=== PATIENT | male | born 1955 | race Caucasian/White ===

== ENCOUNTER 2016-08-13 05:06 | Inpatient (IN) | payer OTHER ==
--- NOTE | 2016-07-15 09:15 | History and Physical ---
History & Physical Date Jul 15, 2016. Chief Complaint left knee pain History of Present Illness Mr Olivares is a 60 year old male who complains of left knee pain. He presents with pain on the left side. He states that the symptoms have been chronic non- traumatic. The symptoms occur constantly with intermittent worsening. The problem is worse. Currently the patient states that the symptoms are moderate- severe. The pain is described as aching and throbbing. The symptoms occur continuously. The patient is experiencing pain in the following location: entire knee region on the left side. He rates his worst pain as 9/10. Night pain is worse. The symptoms are aggravated by daily activities, ascending stairs , descending stairs, sleeping in any position, work activities, weight bearing, walking and standing. In addition to left knee pain the patient is also experiencing decreased mobility, crepitus, joint pain, limping, night pain, nighttime awakening and stiffness. The patient has had a previous x-ray. Prior NSAIDs include Aleve, ibuprofen and Aleve PM. Pt. reports no OTC meds help the night pain at all. He has been treated with Pt. has had Cortisone and Visco in the past on the left side. Pt, had no relief from Visco and little from the Cortione. Patient has had arthroscopic surgery. 06-08-15 Dr. Wagoner performed Arthroscopy, left knee Partial medial meniscectomy, Partial lateral meniscectomy. Pt. had Right TKA by Dr. Wagoner in 2009. Past Medical/Surgical History right knee replacement 2009 right knee manipulation under anesthesia May 2010 left knee arthroscopy Current Medications: Lipitor 1 tab po daily Additional History Hepatic Disease: No Endocrine Disorder: No Kidney Disease: No Hypertension: No Heart Disease: No Other: High Cholesterol Allergies Coded Allergies: No Known Allergies (Unverified , 07/15/16) Physical Examination Skin: warm/dry, no rash Eyes: normal inspection, EOMI, sclerae normal ENT: normal ENT inspection, pharynx normal Head: normocephalic, atraumatic Neck: supple, no adenopathy, trachea midline Respiratory/Chest: lungs clear, normal breath sounds, no respiratory distress Cardiovascular: regular rate, rhythm, no edema, no murmur Abdomen / GI: normal bowel sounds, non tender Addiitonal Comments: Strength LE * Strength Description - Knee: Left: strength is decreased. Knee ROM L * Active ROM - Flexion: 135 degrees, Extension: 0 degrees, Factors: pain, Description: active painful range of motion. Passive ROM - Flexion: 135 degrees, Extension: 0 degrees, Factors: pain, Description: passive painful range of motion. Knee ROM R * Active ROM - Flexion: 135 degrees, Extension: 0 degrees, Factors: normal, Description: active pain free range of motion. Passive ROM - Flexion: 135 degrees, Extension: 0 degrees, Factors: normal, Description: passive pain free range of motion. Strength LE Normal Strength Description - Normal lower extremity: Bilateral. Hip : Left: strength is normal. Ankle/Foot: Left: strength is normal. Knee * Inspection - Gait: limp. Alignment - Right: neutral, Left: varus. Ecchymosis - Right: negative, Left: negative. Effusion - Right: normal, Left: mild. Swelling - Right: normal, Left: mild. Flexibility - Right: normal, Left: normal. Maximum tenderness - Right: normal, Left: medial joint line, lateral joint line, patella. Patella exam - Crepitation - Right: normal, Left: mild. Patella position - Right: neutral, Left: neutral. Tilt - Right: normal, Left: equal. Cece's - lateral - Left: Positive. [facility]'s - medial - Left: Positive. Knee Comments No calf tenderness Knee Normal Inspection - Atrophy - Right: Absent, Left: Absent. Skin - Right: Normal, Left: Normal. Patella exam - Apprehension - Right: Negative, Left: Negative. Q-angle - Right: Normal, Left: Normal. Marcelo's - Right: Negative, Left: Negative. Cece's - lateral - Right: Negative. [facility]'s - medial - Right: Negative. Posterior drawer - Right: Negative, Left: Negative. Anterior drawer - Right: Negative, Left: Negative. Valgus stress - Right: Negative, Left : Negative. Varus stress - Right: Negative, Left: Negative. Neurovascular LE Normal Neurovascular examination including reflexes, sensation , and pulses is within normal limits. Diagnosis Left knee DJD High Cholesterol Plan of Treatment Xrays reviewed of the left knee showing findings consistent with degenerative joint disease including joint space narrowing, subchondral sclerosis and peripheral osteophyte formation. no acute bony pathology, overall varus alignment. Impression: degenerative joint disease of the left knee with no acute bony pathology noted. PLAN: Further care discussed with patient and at this point in time has failed conservative measures and would like to proceed with a left total knee replacement. Plan on discharge will be home with outpatient physical therapy. DVT prophalaxis with TEDs, SCDs and will also place on aspirin 81 mg p.o. b.i.d. for a month postop. Patient will have follow up appointment in our office two weeks post op for staple/suture removal and re-evaluation. Patient otherwise has no other questions or concerns.
[2016-07-15 11:28] VITALS: BMI 29.0
--- NOTE | 2016-07-15 12:04 | PAT Medication Instructions ---
Service Date Jul 15, 2016. Current Home Medication List Hcnkobamxga-Mznslsglomh-Lrn C- (Glucosamine Chondroitin), 2 TAB PEG QAM Ibuprofen (Advil), 400 MG PO QAM Naproxen Sodium-Diphenhydramin (Aleve Pm 220-25 mg), 2 TAB PO HS [Lipitor], 1 TAB PO QAM Medication Instructions For Your Scheduled Surgery - Check with surgeon for instructions: Ibuprofen (Advil), 400 MG PO QAM Naproxen Sodium-Diphenhydramin (Aleve Pm 220-25 mg), 2 TAB PO HS - Hold the following medications 2 weeks prior to surgery: Aqeagfxdamw-Ihkvctrrxbc-Beq C- (Glucosamine Chondroitin), 2 TAB PEG QAM - Take the following medications the morning of surgery with a sip of water: [Lipitor], 1 TAB PO QAM If you have any questions please call us at [phone] (Katie Diehl PA-C) or [phone] or [phone]
[2016-07-15 12:55] LABS: BASO % 0.2 %; BASO ABS # 0.01 K/uL (0-0.2); COMPLETE YES; EOS % 0.8 %; HEMATOCRIT 45.7 % (42-52); IG% 0.2 %; LYMPH % 25.8 %; LYMPH ABS # 1.33 K/uL (1.2-3.4); MEAN CELL VOLUME 87.9 fL (80-100); MEAN CORPUSCULAR HEMOGLOBIN 30.2 pg (25-34); MEAN CORPUSCULAR HGB CONC 34.4 g/dl (32-36); MEAN PLATELET VOLUME 10.8 fL (7.4-10.4); MONO % 11.7 %; NEUT % 61.3 %; PLATELET COUNT 164 K/uL (130-400); WHITE BLOOD COUNT 5.15 K/uL (4.8-10.8)
[2016-07-15 13:02] LABS: URINE APPEARANCE CLEAR (CLEAR); URINE BILIRUBIN NEG (NEG); URINE COLOR YELLOW; URINE NITRITE NEG (NEG); URINE SPECIFIC GRAVITY 1.017 (1.000-1.030); UROBILINOGEN NEG (NEG)
[2016-07-15 13:11] LABS: PROTHROMBIN TIME (PATIENT) 10.6 SECONDS (9.0-12.0)
[2016-07-15 13:14] LABS: MANUAL MICROSCOPIC REQUIRED? NO; REVIEW REQ? NO
[2016-07-15 13:54] LABS: BUN/CREATININE RATIO 16.5 (10-20); CALCIUM 8.9 mg/dl (8.5-10.1); POTASSIUM 4.3 mmol/L (3.5-5.1)
--- NOTE | 2016-08-12 12:42 | HISTORY & PHYSICAL EXAMINATION ---
DATE OF ADMISSION: 08/13/2016 HISTORY OF PRESENT ILLNESS: The patient presents as a 61-year-old white male with left knee pain. He has had a longstanding history of left knee DJD, he has had a previous arthroscopy in June of 2015 with partial meniscectomies and had grade 4 global changes involving his left knee joint. He has previously undergone a right total knee arthroplasty in 2009 successfully, presents with progressive complaints of pain and disability about his left knee. He has failed attempts at conservative management including viscosupplementations, corticosteroid injections, relative rest, activity modification, continued complaints of pain despite the above and presents today for total joint arthroplasty. PAST MEDICAL HISTORY: No history of hypertension. No history of hypercholesterolemia. No history of endocrine disorders. FAMILY HISTORY: Unremarkable and noncontributory. SOCIAL HISTORY: The patient denies history of smoking, alcohol consumption or recreational drug use. PAST SURGICAL HISTORY: Significant for left knee arthroscopy. ALLERGIES: TAMIFLU. MEDICATIONS: Include Lipitor 20 mg p.o. daily. PMH Otherwise unremarkable. See history of present illness for pertinent positives. PHYSICAL EXAMINATION: GENERAL: Reveals a very pleasant 61-year-old white male with complaints of ongoing pain attributable to his left knee and presents for left total knee arthroplasty, postoperative pain management, DVT prophylaxis. HEENT: Otherwise unremarkable, atraumatic, normocephalic. HEART: Regular at 72 beats per minute. No murmurs are noted. LUNGS: Clear. No rales, rhonchi, or wheezes noted. ABDOMEN: Soft, nontender, nondistended. Bowel sounds are present in all 4 quadrants. RECTAL: No rectal examination was performed. MUSCULOSKELETAL: Consistent with of left knee DJD, failing attempts at conservative management. PLAN: Total knee arthroplasty, postoperative pain management, DVT prophylaxis, antibiotics as necessary. MTDD
[2016-08-13] VITALS (9 sets, daily range): BP systolic 112–161; BP diastolic 66–90; PULSE 54–73; TEMP 36.5–36.9; O2SAT 97–99; Ht 182.9 cm; Wt 96.2 kg
[~2016-08-13] VITALS: Ht 182.9 cm; Wt 96.2 kg
[~2016-08-13 05:06] MED LIST: GLUCTAB7 PO; IBUP-1050 PO; LIPITOR PO; NAPR-998 PO
[2016-08-13] MEDS ORDERED: ROPIVACAINE 5MG/ML 30 ML 150 MG, BUPIVACAINE/EPINEPHR 0.5% MPF 30 ML, KETOROLAC TROMETH... INFIL SCH ×7 (06:00)
[2016-08-13] MEDS ORDERED: CEFAZOLIN 2000 MG/60 ML D5W 60 ML IV SCH (06:00)
[2016-08-13] MEDS ORDERED: LACTATED RINGER'S 1000ML IV SCH ×2 (06:00)
[2016-08-13] MEDS ORDERED: LACTATED RINGER'S 500 ML IV SCH (06:00)
[2016-08-13] MEDS ORDERED: SCOPOLAMINE 1.5 MG TDSY TD SCH (06:00)
[2016-08-13] MEDS ORDERED: BUPIVACAINE 0.5 % 5 MG/1 ML PF 10ML VIAL ONE (06:22)
[2016-08-13] MEDS ORDERED: POVIDONE-IODINE OP SOLN 30 ML BTL ONE (06:40)
[2016-08-13] MEDS ORDERED: BACITRACIN 50000 UNIT VIAL ONE (06:40)
[2016-08-13] MEDS ORDERED: ORTHO JOINT ANESTHETIC ONE (06:40)
[2016-08-13] MEDS ORDERED: MIDAZOLAM HCL 1 MG/ML 2ML VIAL ONE (06:40)
[2016-08-13] MEDS ORDERED: ONDANSETRON INJ 2 MG/ML 2 ML VIAL IV PRN (06:45)
[2016-08-13] MEDS ORDERED: ATROPINE SULFATE 0.1 MG/ML 5ML SYR IV PRN (06:45)
[2016-08-13] MEDS ORDERED: EpHEDrine SULFATE INJ 50 MG/ML AMP IV PRN (06:45)
[2016-08-13] MEDS ORDERED: FENTANYL CITRATE INJ 50 MCG/1 ML 2 ML VIAL IV PRN (06:45)
--- NOTE | 2016-08-13 07:00 | History & Physical Bridge Note ---
H&P Re-Evaluation Bridge Note: I have examined the patient, reviewed the History & Physical and in the interval since the performance of the History & Physical I have noted the following changes of clinical significance: No changes noted
[2016-08-13] MEDS: TRANEXAMIC ACID INJ 1,000 MG in SODIUM CHLORIDE 0.9% 100ML 100 ML IV SCH ×2 (07:03→11:16)
[2016-08-13] MEDS ORDERED: PROPOFOL IV EMULSION 10 MG/ML 20 ML VIAL IV ONE (07:22)
--- NOTE | 2016-08-13 08:26 | [facility] Post Operative Brief Note ---
Immediate Operative Summary Operative Date August 13, 2016. Pre-Operative Diagnosis Left Knee Degenerative Joint Disease Post-Operative Diagnosis Left Knee Degenerative Joint Disease Procedure(s) Performed Left Total Knee Arthroplasty Surgeon Dr. Kirill Wagoner Protection Analyst Surgeon(s) Sunil Sorenson PA-C Estimated Blood Loss 5mL Findings severe djd lt knee Specimens Specimen A. Left knee bone and tissue Complication(s) None Disposition Recovery Room / PACU
--- NOTE | 2016-08-13 08:48 | OPERATIVE REPORT ---
DATE OF OPERATION: 08/13/2016 PREOPERATIVE DIAGNOSIS: Severe end-stage degenerative joint disease, left knee. POSTOPERATIVE DIAGNOSIS: Severe end-stage degenerative joint disease, left knee. PROCEDURE: Left total knee arthroplasty utilizing Ocampo \T\ Nephew Journey II nonblock total knee arthroplasty size 8 femur, 7 tibia, 10 poly, 35 oval patella. SURGEON: Dr. Wagoner. GUIDE CHANGER: Sunil Sorenson PA-C, who was necessary for prepping, draping, retraction, wound closure of deep fascia, subQ and skin and was necessary for the case. ESTIMATED BLOOD LOSS: 5 mL. TOURNIQUET TIME: 45 minutes. COMPLICATIONS: None. HISTORY OF PRESENT ILLNESS: The patient is a 61-year-old white male who presents with complaints of ongoing pain attributed to his left knee. He has been nonresponsive to conservative therapy including injections, viscous supplementations, corticosteroid injections, relative rest, activity modification and presents for total knee arthroplasty. He has previously undergone successful right total knee arthroplasty in 2010, he presents today for a left total knee arthroplasty. OPERATION AND FINDINGS: PROCEDURE: The patient was properly prepped and draped in supine position for total knee arthroplasty after identifying the appropriate surgical site. An anterior midline incision was made through the subcutaneous tissues down to the region of the extensor mechanism. A medial parapatellar incision was subsequently made. Meticulous hemostasis was obtained and performed at all times. The patella having been subluxed lateralward, medial and lateral meniscal remnants were excised. The patellar cut was then initially made and was sized to the appropriate size. After subluxing the tibia forward the appropriate meniscal fragments having been removed the distal femur was then cut first utilizing a Ocampo \T\ Nephew block. The distal femoral cuts and chamfer cuts were all made under direct visualization and the proximal tibial osteotomy cut was also made utilizing Ocampo \T\ Nephew blocks and checked with an extramedullary guide. The appropriate trial components on the femur and tibia were placed. Appropriate trial spacers were used to check flexion and extension gaps. With flexion and extension gaps being equal, the components were then subsequently after thorough irrigation and debridement lavage components were then subsequently cemented in the following order: femur, tibia and patella. Exparel was used for intraoperative anesthesia, the medial parapatellar incision was closed utilizing #1 Vicryl, subQ was closed with 2-0 Vicryl, skin was closed with skin clips. A sterile compression dressing was placed. The patient was taken to recovery room in stable condition. Due to the complex nature of the procedure, the entire surgery was performed with the operational assistance of Sunil Sorenson PA-C. The program support assistant, under direct supervision, was involved in the actual performance of all aspects of the surgical procedure including hemostasis, tissue retraction and incision, instrument management, patient positioning, and wound closure. I attest to the content of the Intraoperative Record and any orders documented therein. Any exceptio ns are noted below.
[2016-08-13] MEDS ORDERED: BISACODYL 10 MG SUPP PR PRN (09:15)
[2016-08-13] MEDS ORDERED: MAGNESIUM HYDROXIDE SUSP 30 ML UDC PO PRN (09:15)
[2016-08-13] MEDS ORDERED: ALUMINUM/MAGNESIUM/SIMETH (MAALOX MAX) 30 ML UDC PO PRN (09:15)
[2016-08-13] MEDS ORDERED: MoRPHine SULFATE 2 MG/ML CARP IV PRN ×2 (09:15→11:45)
[2016-08-13] MEDS ORDERED: ZOLPIDEM TARTRATE 5 MG TAB PO PRN (09:15)
[2016-08-13] MEDS ORDERED: SOD PHOSPHATE/SOD BIPHOSPHATE ENEMA 132 ML BTL PR PRN (09:15)
--- NOTE | 2016-08-13 09:35 | DIAGNOSTIC IMAGING REPORT ---
LEFT KNEE 1 OR 2 VIEWS ROUTINE CLINICAL HISTORY: Postoperative evaluation. COMPARISON: None FINDINGS: Alignment of the total left knee arthroplasty is anatomic. There is no periprosthetic fracture. There are a few indeterminate punctate densities which project inferior to the patella on lateral projection. Drains are in place. IMPRESSION: 1. Status post total left knee arthroplasty. No periprosthetic fracture. 2. A few indeterminate punctate radiodensities which project inferior to the patella on lateral projection. Electronically signed by: Sony Lao M.D. 08/13/2016 9:34 AM Dictated Date/Time: 08/13/2016 9:33 AM
--- NOTE | 2016-08-13 10:59 | Anesthesiology Progress Note ---
Anesthesia Post Op Note Date & Time August 13, 2016 at 10:58 Vital Signs Pain Intensity: 0 Vital Signs Past 12 Hours Date Time Temp Pulse Resp B/P Pulse Ox O2 Delivery O2 Flow Rate FiO2 08/13/16 10:15 62 16 110/60 97 Nasal Cannula 2 08/13/16 10:00 36.5 60 16 120/65 97 Nasal Cannula 2 08/13/16 09:50 65 16 115/60 98 Nasal Cannula 2 08/13/16 09:40 61 18 113/62 98 Nasal Cannula 2 08/13/16 09:30 59 13 110/60 96 Nasal Cannula 2 08/13/16 09:20 67 16 109/61 97 Nasal Cannula 2 08/13/16 09:10 36.5 76 16 114/60 98 Nasal Cannula 2 08/13/16 05:42 36.5 62 20 161/90 97 Room Air Notes Mental Status: alert / awake / arousable, participated in evaluation Pt Amnestic to Procedure: Yes Nausea / Vomiting: adequately controlled Pain: adequately controlled Airway Patency, RR, SpO2: stable & adequate BP & HR: stable & adequate Hydration State: stable & adequate Neuraxial Anesthesia: was administered, sensory block is resolving Anesthetic Complications: no major complications apparent
[2016-08-13] MEDS ORDERED: MoRPHine SULFATE 4 MG/ML 1 ML CARP\\VIAL IV PRN (11:45)
[2016-08-13] MEDS ORDERED: MoRPHine SULFATE 10 MG/ML CARP/VIAL IV PRN (11:45)
[2016-08-13] MEDS: D5W AND 1/2NSS + 20MEQ KCL 1,000 ML IV SCH ×2 (12:08→21:21)
[2016-08-13] MEDS: KETOROLAC TROMETHAMINE 30 MG/ML VIAL IV. SCH ×2 (12:09→17:45)
[2016-08-13] MEDS: CEFAZOLIN IV 2,000 MG in DEXTROSE 5% 50ML 50 ML IV SCH ×2 (13:36→21:26)
[2016-08-13] MEDS: ACETAMINOPHEN 500 MG TAB PO SCH ×2 (13:37→21:26)
[2016-08-13] MEDS ORDERED: NURSING VERBAL MED ORDER ONE (17:15)
[2016-08-13] MEDS: OXYCODONE HCL 10 MG TABCR (OXYCONTIN) PO SCH (21:00)
[2016-08-13] MEDS: SENNA 8.6 MG TAB PO SCH (21:20)
[2016-08-13] MEDS: DOCUSATE SODIUM 100 MG CAP PO SCH (21:20)
[2016-08-13] MEDS: ASPIRIN 81 MG ECTAB PO SCH (21:21)
[2016-08-14] VITALS (7 sets, daily range): BP systolic 107–153; BP diastolic 64–76; PULSE 55–80; TEMP 36.6–37.1; O2SAT 92–98
[2016-08-14] MEDS: KETOROLAC TROMETHAMINE 30 MG/ML VIAL IV. SCH ×2 (00:39→05:23)
[2016-08-14] MEDS: ATORVASTATIN 20 MG TAB PO SCH (05:23)
[2016-08-14] MEDS: ACETAMINOPHEN 500 MG TAB PO SCH ×3 (05:23→21:57)
[2016-08-14 07:02] LABS: HEMATOCRIT 36.1 % (42-52); MEAN CELL VOLUME 89.8 fL (80-100); MEAN CORPUSCULAR HEMOGLOBIN 28.6 pg (25-34); MEAN CORPUSCULAR HGB CONC 31.9 g/dl (32-36); MEAN PLATELET VOLUME 10.6 fL (7.4-10.4); PLATELET COUNT 143 K/uL (130-400); RED BLOOD COUNT 4.02 M/uL (4.7-6.1); WHITE BLOOD COUNT 10.56 K/uL (4.8-10.8)
--- NOTE | 2016-08-14 07:05 | Orthopedic Progress Note ---
Orthopedic Progress Note Date of Service August 14, 2016. Subjective Post OP Day: 1 Reports: feeling well, pain controlled w PO medications, Denies: SOB, calf pain , chest pain, complaints, light headedness, nausea / vomiting Objective calves soft nontender, N/V intact, capillary refill less than 2 sec., dressing C /D/I, A&O x3, toes mobile, hemovac drainage (225cc/8 hours) Date Time Temp Pulse Resp B/P Pulse Ox O2 Delivery O2 Flow Rate FiO2 08/14/16 03:20 36.6 61 18 107/64 98 Room Air 08/14/16 00:43 Room Air 08/13/16 23:04 36.7 65 16 136/69 97 Room Air 08/13/16 19:28 36.7 54 16 122/69 98 Nasal Cannula 2.0 08/13/16 16:30 Nasal Cannula 2.0 08/13/16 15:06 36.8 61 17 150/68 99 Nasal Cannula 2.0 08/13/16 13:29 36.9 71 17 118/73 98 Nasal Cannula 2.0 08/13/16 12:26 73 17 122/72 97 Nasal Cannula 2.0 08/13/16 11:28 36.6 56 17 118/72 99 2.0 08/13/16 11:01 36.5 56 16 112/66 97 Nasal Cannula 2.0 08/13/16 10:30 36.6 62 16 123/71 97 Nasal Cannula 2.0 08/13/16 10:30 97 Nasal Cannula 2.0 08/13/16 10:30 97 Nasal Cannula 2.0 08/13/16 10:15 62 16 110/60 97 Nasal Cannula 2 08/13/16 10:00 36.5 60 16 120/65 97 Nasal Cannula 2 08/13/16 09:50 65 16 115/60 98 Nasal Cannula 2 08/13/16 09:40 61 18 113/62 98 Nasal Cannula 2 08/13/16 09:30 59 13 110/60 96 Nasal Cannula 2 08/13/16 09:20 67 16 109/61 97 Nasal Cannula 2 08/13/16 09:10 36.5 76 16 114/60 98 Nasal Cannula 2 Laboratory Results 24 Hours: Test 08/14/16 06:35 Hematocrit 36.1 % Hemoglobin 11.5 g/dL Assessment & Plan Assessment: POD #1 s/p Left TKA -pt/ot -dvt proph with monse/scds/asa -plan for d/c home with out-patient PT, will recheck after PT for drain output High Cholesterol Discharge Planning Discharge Planning: home with oppt DVT Prophylaxis: TEDs, SCDs, ASA
--- NOTE | 2016-08-14 07:09 | Discharge Instructions ---
Discharge Instructions Date of Service August 14, 2016. Admission Reason for Admission: Left Knee Osteoarthritis Discharge Discharge Diagnosis / Problem: left total knee replacement Discharge Goals Goal(s): Decrease discomfort, Improve function, Increase independence Activity Recommendations Activity Limitations: as noted below Weightbearing Status: Left weightbearing (as tolerated) . Instructions / Follow-Up Instructions / Follow-Up ACTIVITY RECOMMENDATIONS: SELF CARE INSTRUCTIONS AFTER TOTAL KNEE REPLACEMENT A. You may need to continue a physical therapy program after discharge from the hospital. There are several options available to you. Your doctor will assist you in selecting the best one for you. 1. An out-patient facility 2 to 3 times a week for therapy or home therapy. 2. Continue working on all exercises taught to you in the hospital. Your goals should be to increase bending of your knee to 90 degrees and beyond and to fully straighten your knee. B. You may progress at your own pace from walking with a walker or crutches to a cane; then to no assistive devices. C. Make walking a part of your daily routine. Be up as much as comfortable with rest periods throughout the day. Rest with leg elevation is very important. Use the ice wrap frequently for the first 3-4 weeks. D. There are no restrictions on activities. You may ride in a car, shop, participate in interventional nurse and all social activities. E. Wear the long elastic stockings (SARIKA hose) 20 hours a day for 2 weeks after surgery. They can be removed several times a day for laundering and for a bath. F. You may shower, no tub baths until cleared by your doctor. SPECIAL CARE INSTRUCTIONS: VERY IMPORTANT TO READ AND REVIEW A. There are a few signs you need to watch for after you are home. Call [facility] if you notice any of the followin. Increased severe knee pain. Some pain is expected especially when you exercise. 2. Increased swelling in your leg or knee; pain or swelling of the calf muscle in either lower leg. 3. Any fluid drainage from the incision. 4. Shortness of breath or chest pain. B. Please call [facility] at if you have any concerns or questions about your operation or recovery. The doctor or his nurse will return your call promptly. C. You must take antibiotics before dental work, bladder, bowel or other surgery. Your doctor will provide you with a permanent care to carry describing this precaution. IMPORTANT: * REMEMBER TO TAKE ASPIRIN, 81 MG, TWICE DAILY FOR 4 WEEKS UNLESS OTHERWISE DIRECTED. THIS IS YOUR BLOOD THINNER. * HIGH RISK PATIENTS MAY BE PRESCRIBED A STRONGER BLOOD THINNER. THIS WILL BE PROVIDED AT DISCHARGE. * CALL IF INCREASED PAIN, REDNESS, DRAINAGE OR FEVER GREATER THAT 101. * WEAR SARIKA HOSE 20 HOURS PER DAY FOR 2 WEEKS. * DERMABOND Prineo- This is a mesh tape dressing that is covered with glue. It should remain in place until the incision is properly healed, usually 10-14 days. This dressing is designed to naturally slough off. You may trim the excess mesh tape as it peels off. Incision may be briefly wet in a shower. Dry immediately by blotting with a clean, dry towel. Do not bath or swim until instructed by your doctor. Do not scratch, rub, or pick at the dressing. Do not apply any topical ointments or lotions until dressing is completely removed and/or instructed by your doctor. There may be a small piece of suture material at one end of your incision. Do not pull or trim this. If it is bothersome or catching on clothing, you may cover it with a band-aid. FOLLOW UP VISIT: If appointment is not already scheduled: Please call [facility] to make a follow-up appointment for 2 weeks after your surgery at . Current Hospital Diet Patient's current hospital diet: Regular Diet Discharge Diet Recommended Diet: Regular Diet Procedures Procedures Performed: Left Total Knee Arthroplasty Pending Studies Studies pending at discharge: no Medical Emergencies . Who to Call and When: Medical Emergencies: If at any time you feel your situation is an emergency, please call 911 immediately. . Non-Emergent Contact Non-Emergency issues call your: Primary Care Provider, Surgeon . "Provider Documentation" section prepared by Sunil Sorenson. . VTE Core Measure Inpt VTE Proph given/why not?: Other Anticoagulation (ASA 81mg po bid x 1 month ), Benjie Clark SCD's [place] Drug Monitoring Program Search Results: patient reviewed within database, no issues identified
[2016-08-14] MEDS ORDERED: RXC5 PO (07:16)
[2016-08-14] MEDS ORDERED: OXYSR10 PO (07:16)
[2016-08-14] MEDS ORDERED: ACET-1138 PO (07:16)
[2016-08-14] MEDS ORDERED: ONDA8TAB12 PO (07:16)
[2016-08-14] MEDS ORDERED: ASPEC81 PO (07:16)
[2016-08-14] MEDS ORDERED: CLB200 PO (07:16)
[2016-08-14] MEDS: D5W AND 1/2NSS + 20MEQ KCL 1,000 ML IV SCH (07:28)
[2016-08-14 07:32] LABS: PROTHROMBIN TIME (PATIENT) 10.7 SECONDS (9.0-12.0)
[2016-08-14 07:37] LABS: BUN/CREATININE RATIO 17.1 (10-20); CALCIUM 8.2 mg/dl (8.5-10.1); CREATININE 0.97 mg/dl (0.60-1.40); POTASSIUM 4.3 mmol/L (3.5-5.1)
--- NOTE | 2016-08-14 08:18 | Anesthesiology Progress Note ---
Anesthesia Post Op Note Date & Time August 14, 2016 at 08:19 Vital Signs Pain Intensity: 2.0 Vital Signs Past 12 Hours Date Time Temp Pulse Resp B/P Pulse Ox O2 Delivery O2 Flow Rate FiO2 08/14/16 08:11 36.7 61 18 122/71 97 Room Air 08/14/16 03:20 36.6 61 18 107/64 98 Room Air 08/14/16 00:43 Room Air 08/13/16 23:04 36.7 65 16 136/69 97 Room Air Notes Mental Status: alert / awake / arousable, participated in evaluation Pt Amnestic to Procedure: Yes Nausea / Vomiting: adequately controlled Pain: adequately controlled Airway Patency, RR, SpO2: stable & adequate BP & HR: stable & adequate Hydration State: stable & adequate Neuraxial Anesthesia: sensory block resolved Anesthetic Complications: no major complications apparent
[2016-08-14] MEDS: OXYCODONE HCL 10 MG TABCR (OXYCONTIN) PO SCH ×2 (08:46→20:59)
[2016-08-14] MEDS: PANTOprazole SOD 40 MG TAB PO SCH (08:47)
[2016-08-14] MEDS: DOCUSATE SODIUM 100 MG CAP PO SCH ×2 (08:47→20:58)
[2016-08-14] MEDS: ASPIRIN 81 MG ECTAB PO SCH ×2 (08:47→20:57)
[2016-08-14] MEDS: MULTIVITAMIN TAB PO SCH (08:47)
[2016-08-14] MEDS ORDERED: LIPITOR PO SCH (09:00)
[2016-08-14] MEDS ORDERED: KETOROLAC TROMETHAMINE 30 MG/ML VIAL IV STA (17:25)
[2016-08-14] MEDS: CeleBREX 200 MG CAP PO SCH (20:58)
[2016-08-14] MEDS: SENNA 8.6 MG TAB PO SCH (20:59)
[2016-08-15] MEDS: ONDANSETRON INJ 2 MG/ML 2 ML VIAL IV PRN ×2 (03:27→09:13)
[2016-08-15] MEDS: OXYCODONE HCL IR 5 MG TAB (IMMEDIATE RELEASE) PO PRN ×2 (03:32→07:37)
[2016-08-15] MEDS: ACETAMINOPHEN 500 MG TAB PO SCH ×2 (05:53→13:33)
[2016-08-15] MEDS: ATORVASTATIN 20 MG TAB PO SCH (05:53)
[2016-08-15 06:52] VITALS: BP 147/79; PULSE 70; TEMP 36.5; O2SAT 98
--- NOTE | 2016-08-15 07:00 | Orthopedic Progress Note ---
Orthopedic Progress Note Date of Service August 15, 2016. Subjective Post OP Day: 2 (s/p Left TKA) Reports: feeling well, pain controlled w PO medications, Denies: SOB, calf pain , chest pain, complaints, light headedness, nausea / vomiting Additional Notes: calf pain from last evening has resolved Objective calves soft nontender, N/V intact, capillary refill less than 2 sec., incision C /D/I, A&O x3, toes mobile Date Time Temp Pulse Resp B/P Pulse Ox O2 Delivery O2 Flow Rate FiO2 08/15/16 06:52 36.5 70 18 147/79 98 Room Air 08/15/16 00:25 Room Air 08/14/16 23:13 37.1 69 16 147/69 97 Room Air 08/14/16 20:13 36.8 72 16 126/70 96 Room Air 08/14/16 18:13 74 143/75 08/14/16 15:57 36.8 80 18 153/76 92 Room Air 08/14/16 15:45 Room Air 08/14/16 12:06 36.7 55 18 112/67 98 Room Air 08/14/16 08:11 36.7 61 18 122/71 97 Room Air 08/14/16 07:40 Room Air Assessment & Plan Assessment: POD #2 s/p Left TKA -pt/ot -dvt proph with monse/scds/asa -plan for d/c home with out-patient PT, likely after PT today High Cholesterol Discharge Planning Discharge Planning: home with oppt DVT Prophylaxis: TEDs, SCDs, ASA
--- NOTE | 2016-08-15 07:04 | Discharge Summary ---
Orthopedic Discharge Summary Admission Date/Reason August 13, 2016 at 07:00 Left Knee Osteoarthritis. Discharge Date/Disposition August 15, 2016 Home with services Diagnosis Principal Diagnosis: left knee osteoarthritis Procedure(s) Performed Left total knee arthroplasty utilizing Ocampo \T\ Nephew Journey II nonblock total knee arthroplasty size 8 femur, 7 tibia, 10 poly, 35 oval patella. Consultations none Medication Reconciliation New Medications: Ondansetron Hcl (Zofran) 8 Mg Tab 8 MG PO Q8 for Nausea, #20 TAB Acetaminophen (Tylenol Extra Strength) 500 Mg Tab 1000 MG PO Q8H, #126 TAB Aspirin (Aspirin EC Low Dose) 81 Mg Ectab 81 MG PO BID for 30 Days, #60 Celecoxib (Celebrex) 200 Mg Cap 200 MG PO BID, #60 CAP Oxycodone HCl (Oxycontin) 10 Mg Tabcr 10 MG PO Q12, #20 Oxycodone HCl (Oxycodone HCl) 5 Mg Tab 5-10 MG PO Q4H PRN for Pain, #90 TAB Continued Medications: [Lipitor] () 1 TAB PO QAM Discontinued Medications: Qpjzpejpoan-Kegwffpnhwv-Ubk C- (Glucosamine Chondroitin) 1 Tab Tab 2 TAB PO QAM Ibuprofen (Advil) 200 Mg Tab 400 MG PO QAM, TAB Naproxen Sodium-Diphenhydramin (Aleve Pm 220-25 mg) 1 Tab Tab 2 TAB PO HS Admission Physical Exam As per Admitting History & Physical. Hospital Course Patient was a same day admission after undergoing a successful left TKA. he tolerated the procedure well. Post-operatively, his activity was progressed and well tolerated. Please refer to daily progress notes and PT notes for complete details. After exam on 08/15/16, patient felt to be stable for discharge home with OPPT. Patient will f/u in the office in 2 weeks for further evaluation including x-rays and incision check, sooner if having any issues or concerns. Below are pertinent labs/studies during their hospital stay: Last Vital Signs Documentation Date Time Temp Pulse Resp B/P Pulse Ox O2 Delivery O2 Flow Rate FiO2 08/15/16 06:52 36.5 70 18 147/79 98 Room Air 08/13/16 19:28 2.0 Last Resulted CBC 08/14/16 06:35 Last Resulted BMP 08/14/16 06:35 Discharge Instructions ACTIVITY RECOMMENDATIONS: SELF CARE INSTRUCTIONS AFTER TOTAL KNEE REPLACEMENT A. You may need to continue a physical therapy program after discharge from the hospital. There are several options available to you. Your doctor will assist you in selecting the best one for you. 1. An out-patient facility 2 to 3 times a week for therapy or home therapy. 2. Continue working on all exercises taught to you in the hospital. Your goals should be to increase bending of your knee to 90 degrees and beyond and to fully straighten your knee. B. You may progress at your own pace from walking with a walker or crutches to a cane; then to no assistive devices. C. Make walking a part of your daily routine. Be up as much as comfortable with rest periods throughout the day. Rest with leg elevation is very important. Use the ice wrap frequently for the first 3-4 weeks. D. There are no restrictions on activities. You may ride in a car, shop, participate in it network architect and all social activities. E. Wear the long elastic stockings (SARIKA hose) 20 hours a day for 2 weeks after surgery. They can be removed several times a day for laundering and for a bath. F. You may shower, no tub baths until cleared by your doctor. SPECIAL CARE INSTRUCTIONS: VERY IMPORTANT TO READ AND REVIEW A. There are a few signs you need to watch for after you are home. Call [facility] if you notice any of the followin. Increased severe knee pain. Some pain is expected especially when you exercise. 2. Increased swelling in your leg or knee; pain or swelling of the calf muscle in either lower leg. 3. Any fluid drainage from the incision. 4. Shortness of breath or chest pain. B. Please call [facility] at if you have any concerns or questions about your operation or recovery. The doctor or his nurse will return your call promptly. C. You must take antibiotics before dental work, bladder, bowel or other surgery. Your doctor will provide you with a permanent care to carry describing this precaution. IMPORTANT: * REMEMBER TO TAKE ASPIRIN, 81 MG, TWICE DAILY FOR 4 WEEKS UNLESS OTHERWISE DIRECTED. THIS IS YOUR BLOOD THINNER. * HIGH RISK PATIENTS MAY BE PRESCRIBED A STRONGER BLOOD THINNER. THIS WILL BE PROVIDED AT DISCHARGE. * CALL IF INCREASED PAIN, REDNESS, DRAINAGE OR FEVER GREATER THAT 101. * WEAR SARIKA HOSE 20 HOURS PER DAY FOR 2 WEEKS. * DERMABOND Prineo- This is a mesh tape dressing that is covered with glue. It should remain in place until the incision is properly healed, usually 10-14 days. This dressing is designed to naturally slough off. You may trim the excess mesh tape as it peels off. Incision may be briefly wet in a shower. Dry immediately by blotting with a clean, dry towel. Do not bath or swim until instructed by your doctor. Do not scratch, rub, or pick at the dressing. Do not apply any topical ointments or lotions until dressing is completely removed and/or instructed by your doctor. There may be a small piece of suture material at one end of your incision. Do not pull or trim this. If it is bothersome or catching on clothing, you may cover it with a band-aid. FOLLOW UP VISIT: If appointment is not already scheduled: Please call [facility] to make a follow-up appointment for 2 weeks after your surgery at .
[2016-08-15] MEDS: OXYCODONE HCL 10 MG TABCR (OXYCONTIN) PO SCH (07:36)
[2016-08-15] MEDS: PANTOprazole SOD 40 MG TAB PO SCH (07:37)
[2016-08-15] MEDS: MULTIVITAMIN TAB PO SCH (07:37)
[2016-08-15] MEDS: CeleBREX 200 MG CAP PO SCH (07:37)
[2016-08-15] MEDS: DOCUSATE SODIUM 100 MG CAP PO SCH (07:37)
[2016-08-15] MEDS: ASPIRIN 81 MG ECTAB PO SCH (07:37)
[2016-08-15 08:24] VITALS: BP 145/77; PULSE 66; TEMP 36.6
[2016-08-15 09:15] VITALS: PULSE 66; TEMP 36.6; O2SAT 98
[2016-08-15] MEDS ORDERED: NURSING VERBAL MED ORDER ONE (11:15)
[2016-08-15] MEDS ORDERED: PROMETHAZINE HCL INJ 12.5 MG in SODIUM CHLORIDE 0.9% 50ML 50 ML IV ONE (11:30)
[2016-08-15 14:05] VITALS: BP 133/74
== END 2016-08-15 14:20 | disposition home or self-care (01) | DRG 470 ==
LOC: ENRESERVTM → ENRESERVDT → C.ACU 05:06 → C.3E 07:00
PROVIDERS: ADMIT Orthopaedic Surgery; ATTEND Orthopaedic Surgery
PROC: 0SRD0J9 Replacement of Left Knee Joint with Synthetic Substitute, Cemented, Open Approach (ICD-10-PCS; principal; 2016-08-13 07:00)
DX: M17.12 Unilateral primary osteoarthritis, left knee (principal); E78.00 Pure hypercholesterolemia, unspecified; N40.0 Benign prostatic hyperplasia without lower urinary tract symptoms; Z96.651 Presence of right artificial knee joint; Z79.1 Long term (current) use of non-steroidal anti-inflammatories (NSAID); Z79.899 Other long term (current) drug therapy

== ENCOUNTER 2021-11-07 08:33 | Inpatient (IN) ==
--- NOTE | 2021-09-27 10:04 | PAT Medication Instructions ---
Medication Instructions Date of Service September 27, 2021 Home Medications aspirin 81 mg capsule 81 mg PO QAM atorvastatin 20 mg tablet 20 mg PO QAM cholecalciferol (vitamin D3) 25 mcg (1,000 unit) chewable tablet (Vitamin D3) 25 mcg PO QAM echinacea 125 mg capsule 125 mg PO QAM glucosamine sulf dipot chlr,msm,chond 550 mg-C 30 mg-yara 1 mg capsule (Glucosamine Chondroitin) 2 cap PO QAM multivitamin 1 cap PO QAM pantoprazole 40 mg tablet,delayed release 40 mg PO BID STOP taking 2 weeks before surgery echinacea 125 mg capsule 125 mg PO QAM glucosamine sulf dipot chlr,msm,chond 550 mg-C 30 mg-yara 1 mg capsule (Glucosamine Chondroitin) 2 cap PO QAM DO NOT take the morning of surgery cholecalciferol (vitamin D3) 25 mcg (1,000 unit) chewable tablet (Vitamin D3) 25 mcg PO QAM multivitamin 1 cap PO QAM Take morning of surgery With a small sip of water, OTHERWISE NOTHING TO EAT OR DRINK AFTER MIDNIGHT: aspirin 81 mg capsule 81 mg PO QAM (unless directed otherwise by surgeon) atorvastatin 20 mg tablet 20 mg PO QAM pantoprazole 40 mg tablet,delayed release 40 mg PO BID Take evening before surgery pantoprazole 40 mg tablet,delayed release 40 mg PO BID Other Notes If you have any questions please call us at [phone] or [phone] or [phone] or [phone]
--- NOTE | 2021-10-01 11:48 | Anesthesiology Consultation ---
Date of Service October 01, 2021 Assessment & Plan (1) Encounter for pre-operative examination: - pacemaker: [employer]. - cardiology office note, upcoming appointment prior to surgery per pt. Will also attempt to obtain most recent pacer check. - COVID screening: Per assessment on 10/01/2021: Travel screen negative, no known COVID-19 positive contacts or current COVID-19 related symptoms in past 2 weeks. Pt vaccinated. Surgeon arranging preop COVID testing, scheduled 10/22/2021. Awaiting results. Chart Review Chart Review: Pending: Refer to Additional Notes / Consult section and Patient seen in Pre Admission Testing Teaching & Discussion Pre-Anesthesia Teaching/Discussion Notes: Instructed NPO after midnight before surgery, except medications with 15 cc of water. Medication instructions provided according to the PAT guidelines. History Surgery Operation Date: 10/24/21 10:15 Proposed Procedures p Right Total Knee Arthrhoplasty Revision Poly Exchange - Kirill Wagoner DO Height/Weight Height: 6 ft Weight: 91.7 kg Allergies Allergy/AdvReac Type Severity Reaction Status Date / Time blue dye AdvReac Unknown NAUSEA Verified 09/26/21 09:27 VOMITING DIARRHEA CHILLS oseltamivir AdvReac Unknown NAUSEA Verified 09/26/21 09:27 VOMITING DIARRHEA CHILLS Medications Home Medications Medication Instructions Recorded Confirmed Last Taken aspirin 81 mg capsule 81 mg PO QAM 09/26/21 09/26/21 Unknown atorvastatin 20 mg tablet 20 mg PO QAM 09/26/21 09/26/21 Unknown cholecalciferol (vitamin D3) 25 25 mcg PO QAM 09/26/21 09/26/21 Unknown mcg (1,000 unit) chewable tablet (Vitamin D3) echinacea 125 mg capsule 125 mg PO QAM 09/26/21 09/26/21 Unknown glucosamine sulf dipot 2 cap PO QAM 09/26/21 09/26/21 Unknown chlr,msm,chond 550 mg-C 30 mg-yara 1 mg capsule (Glucosamine Chondroitin) lisinopril 5 mg tablet 5 mg PO HS 09/26/21 09/26/21 Unknown multivitamin 1 cap PO QAM 09/26/21 09/26/21 Unknown pantoprazole 40 mg tablet,delayed 40 mg PO BID 09/26/21 09/26/21 Unknown release Past Medical History Medical History (Updated 10/01/21 @ 11:54 by Mariah Boston PA-C) BPH (benign prostatic hyperplasia) GERD (gastroesophageal reflux disease) controlled, stable per pt HTN (hypertension) controlled, stable per pt Hyperlipidemia Pacemaker follow with Dr. Rodriguez in [place] PONV (postoperative nausea and vomiting) does well with IV pre-dosing, denies needing scop patch Ringing in ears Patient denies h/o stroke, seizures, heart attack, heart failure, DM, blood clots or blood transfusions. Exercise / Class Metabolic Activity II 4-5 Yardwork/Stairs/Walk up hill (denies CP or SOB with 1 FOS) Past Surgical History Surgical History History of knee replacement procedure of left knee History of knee replacement procedure of right knee History of surgery on left wrist repair of tear History of surgical amputation of finger of right hand index finger Hx of colonoscopy Hx of foot surgery left foot with pin Hx of LASIK Hx of right inguinal hernia repair Past Anesthesia History No Hx of Anesthesia Complications and No Family Hx of Anesthesia Complications History of PONV History of PONV and Hx of Motion Sickness Social History Smoking Status: Never smoker Do You Dip or Chew Tobacco: No Hx Alcohol Use: Yes Alcohol type: beer alcohol intake frequency: a few times a week Hx Substance Use: No substance use type: does not use Review of Systems Rare "fluttering" reduced since pacemaker placement if significantly increased activity, resolves upon resting; denies associated lightheadedness, dizziness, syncope, chest discomfort or shortness of breath. Patient denies chest pain, shortness of breath, dyspnea on exertion, snoring, witnessed apneas, fever, chills, cough or wheezing. Physical Exam Vital Signs Vitals BP 145/81 P 59 TEMP 98.4 SP02 99% on RA RESP 17 Physical Full cervical extension range of motion without pain TMD 3.5 finger breaths Mallampati Score 3 Dentition: intact, denies missing, chipped or loose teeth, caps/crowns, implants or bridges Lungs: normal respiratory effort. Clear throughout to auscultation, no adventitious breath sounds Cardiac: regular rate and rhythm, no murmurs noted Carotid arteries: negative bruit bilat Lab Results Anesthesia Preop Results Results Anesthesia Widget: WBC 4.38 K/uL (4.8-10.8) L 10/01/21 Hgb 15.0 g/dL (14.0-18.0) 10/01/21 Hct 43.7 % (42-52) 10/01/21 Plt 161 K/uL (130-400) 10/01/21 Na 136 mmol/L (136-145) 10/01/21 K 4.1 mmol/L (3.5-5.1) 10/01/21 Cl 107 mmol/L (98-107) 10/01/21 CO2 24 mmol/L (21-32) 10/01/21 BUN 16 mg/dl (6-23) 10/01/21 Creat 0.88 mg/dl (0.6-1.4) 10/01/21 Glucose Level 100 mg/dl (70-99(Fasting)) H 10/01/21 PT 10.8 Seconds (9.0-12.0) 10/01/21 PTT 27.6 Seconds (21.0-31.0) 10/01/21 INR 1.0 (0.9-1.1) 10/01/21 HA1c 5.5 % (4.5-5.6) 10/01/21 Urine Color Yellow 10/01/21 Urine Appearance Clear (Clear) 10/01/21 Urine pH 6.0 (4.5-7.5) 10/01/21 Urine Specific [place] 1.015 (1.000-1.030) 10/01/21 Urine Protein Negative (Negative) 10/01/21 Urine Glucose (UA) Negative (Negative) 10/01/21 Urine Ketones Negative (Negative) 10/01/21 Urine Blood Negative (Negative) 10/01/21 Urine Nitrite Negative (Negative) 10/01/21 Urine Bilirubin Negative (Negative) 10/01/21 Urine Urobilinogen Negative (Negative) 10/01/21 Urine Leukocyte Esterase Negative (Negative) 10/01/21 Blood Type A Positive 10/01/21 Antibody Screen NEGATIVE 10/01/21 Testing Electrocardiogram Date: 10/01/21 Sinus bradycardia, rate 54 bpm Chest X-Ray Date: 10/01/21 Dual lead right subclavian pacer is in place. Lung volumes are normal. Lungs are clear. There is no pneumothorax or pleural effusion. Cardiac size is normal. Mediastinal contours are normal. There is no evidence for pulmonary edema. IMPRESSION: No acute cardiopulmonary findings. Echocardiogram Date: 09/09/18 EF 55-60% Technically difficult study No significant valvular dysfunction Normal diastolic function
--- NOTE | 2021-10-09 07:51 | History & Physical Report ---
Date of Service October 09, 2021 date of surgery: 10/24/21 Procedure: Right Total Knee revision arthroplasty, Poly Exchange Surgeon: Kirill Cabrera Assessment & Plan (1) Right knee pain: Plan: further care discussed with dr cabrera, plan will be poly exchange of his right total knee replacement pending intra-operative findings. plan for d/c home with HHPT, ASA 81mg po bid x 1 month dvt prophalaxis. The risks and benefits have been discussed including, but not limited to, risk of infection, nerve injury, stiffness, loss of motion, failure to improve, etc. Reasonable outcomes and options of treatment were discussed. An explanation of appropriate alternatives to the procedure that may be advantageous were discussed and their risks and benefits, as well as the risks and benefits of not proceeding with treatment. I offered to answer any additional inquiries concerning the treatment involved. All the patient's questions were answered. The patient is agreeable, understanding of the treatment plan and alternatives, and wishes to proceed with the treatment plan. History of Present Illness Chief Complaint: right knee pain Primary Care Provider: Elaine Campos MD Win is a 66 year old male w/ complaints of right knee pain, s/p right TKA 03/[address] Cabrera, Ocampo and Nephew 8 femur, 7 tibia, 10 poly and 30 patella. he did require a THIAGO in May 2010. he then did well until most recently, has complaints of ongoing painful effusion with ligamentous laxity to right total knee status post total knee arthroplasty, with marked medial lateral collateral ligament laxity with subluxation and jumping of post. He has had a Synovasure done no infection is noted sed rate is within normal limits at 2 C-reactive protein is 1.8 within normal limits no crystals are noted no pseudogout is noted, alpha defense and this is negative no sign of anything infectious. x-rays revealed no tibial or femoral component loosening his problems. he discussed with Dr Cabrera that this is likely wear with poly loosening and had the discussion regarding poly exchange upsizing to correct the instability. Allergies Allergy/AdvReac Type Severity Reaction Status Date / Time blue dye AdvReac Unknown NAUSEA Verified 09/26/21 09:27 VOMITING DIARRHEA CHILLS oseltamivir AdvReac Unknown NAUSEA Verified 09/26/21 09:27 VOMITING DIARRHEA CHILLS Home Medications Medication Instructions Recorded Confirmed Type aspirin 81 mg capsule 81 mg PO QAM 09/26/21 09/26/21 History atorvastatin 20 mg tablet 20 mg PO QAM 09/26/21 09/26/21 History cholecalciferol (vitamin D3) 25 25 mcg PO QAM 09/26/21 09/26/21 History mcg (1,000 unit) chewable tablet (Vitamin D3) echinacea 125 mg capsule 125 mg PO QAM 09/26/21 09/26/21 History glucosamine sulf dipot 2 cap PO QAM 09/26/21 09/26/21 History chlr,msm,chond 550 mg-C 30 mg-yara 1 mg capsule (Glucosamine Chondroitin) lisinopril 5 mg tablet 5 mg PO HS 09/26/21 09/26/21 History multivitamin 1 cap PO QAM 09/26/21 09/26/21 History pantoprazole 40 mg tablet,delayed 40 mg PO BID 09/26/21 09/26/21 History release Past Med/Surg History Medical History BPH (benign prostatic hyperplasia) GERD (gastroesophageal reflux disease) controlled, stable per pt HTN (hypertension) controlled, stable per pt Hyperlipidemia Pacemaker follow with Dr. Rodriguez in [place] PONV (postoperative nausea and vomiting) does well with IV pre-dosing, denies needing scop patch Ringing in ears Surgical History History of knee replacement procedure of left knee History of knee replacement procedure of right knee History of surgery on left wrist repair of tear History of surgical amputation of finger of right hand index finger Hx of colonoscopy Hx of foot surgery left foot with pin Hx of LASIK Hx of right inguinal hernia repair Social History Smoking Status: Never smoker Second Hand Exposure: No; Hx Alcohol Use: Yes Alcohol type: beer Hx Substance Use: No Preferred Language: Cook Islander Communication Ability: Effective Superintendent Drilling And Production Required: No Beliefs That Will Affect Care: None Current Living Situation: Spouse Feels Safe at Home: Yes Assistive Devices: None Review of Systems Review of Systems: All systems reviewed & are unremarkable except as noted in HPI & below Constitutional: no fever, no chills and no sweats Respiratory: no cough and no dyspnea Cardiovascular: no chest pain, no dyspnea and no orthopnea Gastrointestinal: no abdominal pain, no nausea and no vomiting Musculoskeletal: as per Subjective / HPI Physical Exam Physical Exam: HT: 6 ft WT: 91.7kg Constitutional: WD/WN, vitals as above no acute distress Respiratory: normal respiratory effort, lungs clear to auscultation no respiratory distress, no labored breathing and does not use accessory muscles Cardiovascular: RRR, no murmur, no edema Gastrointestinal (Abdomen): normal bowel sounds, soft, nontender, no hepatosplenomegaly Musculoskeletal: Right Knee Exam Ambulates with a limp, overall neutral alignment, there is no atrophy warmth or ecchymosis noted, mild effusion, maximum tenderness medial joint line. negative patellar Apprehension , no crepitation with motion, mild laxity with valgus and varus stress, no Extensor lag, no Pain with Active range of motion, Range of motion 0/3/110. No pain with active/passive ROM of ankle. Lower Extremity Strength normal. Lower Extremity Neuro-vascular is normal Results & Data Results & Data ([facility]) Laboratory Results as outlined in HPI Diagnostic Findings Radiographs reveal a cemented total knee replacement arthroplasty in acceptable position and alignment. No evidence of loosening or loss of fixation is noted. The patella is tracking well. ASSESSMENT: status post cemented posterior stabilized total knee replacement arthroplasty.
[~2021-11-07 08:33] MED LIST changes: +ACETAMINOPHEN 500 MG TAB PO SCH; +BUPIVACAINE 0.5 % 5 MG/1 ML PF 10ML VIAL ONE; +CeleBREX 200 MG CAP PO SCH; +FAMOTIDINE 20 MG TAB PO SCH; +GABAPENTIN 300 MG CAP PO SCH; -GLUCTAB7 PO; -IBUP-1050 PO; +LIDOCAINE 2% MPF LOCAL 5 ML VIAL INFIL ONE; -LIPITOR PO; +LR 500ML BOLUS, THEN 15ML/HR IV SCH; +METOCLOPRAMIDE HCL 10 MG TABLET PO SCH; -NAPR-998 PO; +ROPIVACAINE 0.5% 5 MG/ML 30 ML VIAL ONE; +ROPIVACAINE 0.5% HCL/PF 150 MG, BUPIVACAINE 0.75% MPF 20 ML, EPINEPHrine 30MG/30ML (OR ... INSTIL SCH; +ceFAZolin 2000MG 2,000 MG/15 ML SYR IV SCH; +dexAMETHasone 4 MG TAB PO SCH
[2021-11-07] MEDS ORDERED: ePHEDrine sulfate 50 MG/ML SYR ONE (09:06)
[2021-11-07] MEDS ORDERED: LIDOCAINE 2% MPF LOCAL 5 ML VIAL INFIL ONE (09:06)
[2021-11-07] MEDS ORDERED: fentaNYL citrate 100 MCG/2 ML VIAL ONE (09:06)
[2021-11-07] MEDS ORDERED: MIDAZOLAM HCL 1 MG/ML 2ML VIAL ONE (09:06)
[2021-11-07] MEDS ORDERED: PROPOFOL IV EMULSION 10 MG/ML 20 ML VIAL IV ONE ×4 (09:06→11:49)
[2021-11-07] MEDS ORDERED: PHENYLEPHRINE 100MCG/ML 5ML SYR ONE (09:06)
[2021-11-07] MEDS ORDERED: TRANEXAMIC ACID / 0.7% NACL 1,000 MG/100 ML BAG IV ONE ×2 (09:42)
--- NOTE | 2021-11-07 09:46 | History & Physical Bridge Note ---
Date of Service November 07, 2021 History & Physical Bridge Note I have examined the patient, reviewed the History & Physical and in the interval since the performance of the History & Physical I have noted the following changes of clinical significance: no changes noted
[2021-11-07] MEDS ORDERED: ePHEDrine sulfate 50 MG/ML AMP IV PRN (09:59)
[2021-11-07] MEDS ORDERED: ATROPINE SULFATE 0.1 MG/ML 10ML SYR IV PRN (09:59)
[2021-11-07] MEDS ORDERED: fentaNYL citrate 100 MCG/2 ML VIAL IV PRN (09:59)
[2021-11-07] MEDS ORDERED: ONDANSETRON INJ 2 MG/ML 2 ML VIAL IV PRN ×2 (09:59→15:21)
[2021-11-07] MEDS ORDERED: DEXAMETHASONE SOD INJ 4 MG/ML VIAL ONE (10:01)
[2021-11-07] MEDS ORDERED: ONDANSETRON INJ 2 MG/ML 2 ML VIAL ONE (10:01)
[2021-11-07] MEDS ORDERED: ORTHO JOINT ANESTHETIC ONE (10:30)
[2021-11-07] MEDS ORDERED: HYDROmorphone INJ 2 MG/ML SYR/VIAL ONE (11:29)
--- NOTE | 2021-11-07 12:18 | Operative Report ---
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 Post-Op Diagnosis: Failed polyethylene total Right Knee Arthroplasty I identified the patient and participated in the time-out.: Yes Procedure Operation Date: 10/24/21 11:40 <No data on this case meets the specified criteria> Operation Date: 11/07/21 10:30 Actual Procedures p Right Total Knee Polychange(4 broken post to size 13 posterior constrained right) - Kirill Wagoner DO Surgeon Kirill Wagoner DO Gear Lapping Machine Operator Chino THORNE Estimated Blood Loss 5 Findings Consistent with Post-Op Diagnosis Patient presents from a 2017 total knee arthroplasty with a couple falls and a broken post polyethylene component to the right total knee for polychange Specimens Polyethylene with broken post synovium culture Drains Medium bore Hemovac Anesthesia Type General Regional Complications none Disposition Accompanied Patient To Recovery: No Disposition: Recovery Room Indications Patient presents with pain instability and swelling after having a fall onto breaking the polyethylene post right total knee arthroplasty Description of Procedure After initiation of general regional anesthesia the right lower extremity socially prepped and draped usual fashion surgery type utilizing #10 blade an anterior incision was made in the region of the previous midline incision dissection was carried down to the subcutaneous tissues a medial parapatellar incision was made the wound was irrigated there is an obvious broken post with a free-floating piece opposed sitting in the notch this was removed as was the poly the wound was irrigated copious months of sterile saline solution medial lateral releases were performed synovectomy of medial lateral gutters were performed synovial fluid was analyzed for gram stain and culture although there is no sign of visibly any type of infection no loosening of tibial femoral or patellar components was noted the wound was once again thoroughly irrigated was trialed up to a size 13 from originally at 10 a size 13 with a standard post gave excellent stability in both flexion extension mid flexion and after thorough irrigation debridement lavage there is hemostasis obtained to maintain the polywas changed the wound was closed over medium bore Hemovac with #0 Vicryl 2-0 Vicryl skin clips sterile compressive dressing was placed patient was taken to recovery stable conditionDue to the complex nature of the procedure, the entire surgery was performed with the operational assistance of Chino THORNE. The family services assistant, under direct supervision, was involved in the actual performance of all aspects of the surgical procedure including hemostasis, tissue retraction and incision, instrument management, patient positioning, and wound closure. I attest to the content of the Intraoperative Record and any orders documented therein. Any exceptions are noted below.
--- NOTE | 2021-11-07 13:35 | Anesthesiology Progress Note ---
Date of Service November 07, 2021 Anesthesia Post Procedure Vital Signs Vital Signs: Temp Pulse Pulse Resp BP Pulse Ox O2 Del Method 11/07/21 13:30 36.3 C L 77 20 149/82 H 98 Room Air 11/07/21 13:20 77 20 138/68 97 Room Air 11/07/21 13:10 77 12 133/74 92 Room Air 11/07/21 13:00 66 17 116/54 L 97 Oxymask 11/07/21 12:50 36.4 C L 69 16 106/50 L 97 Oxymask 11/07/21 09:07 36.8 C 67 20 161/76 H 98 Room Air O2 Flow Rate 11/07/21 13:30 11/07/21 13:20 11/07/21 13:10 11/07/21 13:00 6 11/07/21 12:50 6 11/07/21 09:07 Pain Intensity Right Knee: Pain Intensity: 2 Transfer of Care Handoff Completed per policy Notes Mental Status: alert / awake / arousable and participated in evaluation Patient Amnestic to Procedure: Yes Nausea / Vomiting: adequately controlled Pain: adequately controlled Airway Patency, RR, SpO2: stable & adequate BP & HR: stable & adequate Hydration State: stable & adequate Anesthetic Complications: no major complications apparent and Pt Satisfied with anesthetic care
--- NOTE | 2021-11-07 13:53 | XRay Report ---
XR knee RT 1 or 2V routine HISTORY: 66 years-old Male Surgical Post Op right knee total joint arthroplasty COMPARISON: None TECHNIQUE: 2 views the right knee FINDINGS: Right knee total joint arthroplasty with patellar resurfacing. Anterior midline skin isabella are note d along with expected postoperative soft tissue swelling and deep tissue air. Surgical drainage juanita ter is in place. IMPRESSION: Total joint arthroplasty with expected postoperative changes. ACT 112: Negative or not required by law. The above report was generated using voice recognition software. It may contain grammatical, syntax o r spelling errors. Electronically signed by: Socrates Benjamin M.D. 11/07/2021 1:51 PM
[2021-11-07] MEDS ORDERED: NALOXONE HCL 0.4 MG/1 ML VIAL/CARP IV PRN (15:21)
[2021-11-07] MEDS ORDERED: HYDROmorphone INJ 0.5 MG/0.5 ML SYR IV PRN (15:21)
[2021-11-07] MEDS ORDERED: bisacodyL 10 MG SUPP PR PRN (15:21)
[2021-11-07] MEDS ORDERED: MAGNESIUM HYDROXIDE SUSP 30 ML UDC PO PRN (15:21)
[2021-11-07] MEDS ORDERED: oxyCODONE HCL IR 5 MG TAB (IMMEDIATE RELEASE) PO PRN (15:21)
[2021-11-07] MEDS: SODIUM CHLORIDE 0.9% 1000ML 1,000 ML IV SCH (15:49)
--- NOTE | 2021-11-07 16:00 | Hospitalist Consultation ---
Date of Consultation November 07, 2021 Assessment & Plan (1) Hyperlipidemia: Kishore is a 66-year-old male who presented for right total knee replacement 11/07/2021, we are consulted for postop management. Right total knee replacement/polyexchange 11/07/2021 Pain adequately controlled at bedside. DVT prophylaxis, pain control, activity restrictions per primary team Neurovascularly intact at time of bedside Patient does have nausea postoperatively, minimally improved with Zofran. Reports this is typical for him undergoing anesthesia and generally wears off. Will let nursing know if it is severe, could get Reglan versus Compazine if needed but is okay with deferring this for now. QT is not prolonged on EKG review. Hypertension May resume lisinopril 11/08/2021 Normotensive at time of bedside assessment Aspirin 81 mg daily adjusted to twice daily for DVT PPx per primary team Recommend BMP in the morning, if creatinine remains at baseline resume lisinopril as noted Sick sinus syndrome s/p pacer placement No symptoms since pacer placed Rate adequate No acute interventions needed for this at this time HLD Continue atorvastatin 20 mg nightly GERD Continue PPI 40 mg twice daily hx BPH Bladder scan every shift/PRN, straight cath as needed if PVR greater than 300 cc (2) BPH (benign prostatic hyperplasia): (3) GERD (gastroesophageal reflux disease): (4) HTN (hypertension): History of Present Illness Attending Physician: Kirill Wagoner, History of Present Illness Win is a 66yo M w/ failed R TKA now s/p R Total knee polychange on 11/07/21. We are consulted for postop mngmt of HTN, sinus node dysfunctio s/p pacer placement, and BPH with LUTS. Last echo 09/2018 with EF 60%. Had short runs of SVT, episodes of syncope resolved following pacer placement for sick sinus syndrome. Otherwise denies heart history. Versus hypertension well-controlled on lisinopril, hyperlipidemia on atorvastatin, otherwise denies additional medical history de nies fever, chills, sweats postop. Is very nauseous which she reports has occurred multiple times with prior anesthesia. Has received Zofran. Denies chest pain/chest pressure/shortness of breath. No BM yet. Denies headache, lightheadedness, dizziness. Reports he normally takes his lisinopril in the evening. Preop: Hgb wnl 15 Cr normal at baseline. 0.88 preop. A1C 5.5% Medical History: Reviewed Medications: Reviewed Surgical History: Reviewed Allergies: Reviewed Social History: Nonsmoker, rare EtoH. No hx CAD Code Status: Full code Allergies Allergy/AdvReac Type Severity Reaction Status Date / Time blue dye AdvReac Unknown NAUSEA Verified 11/07/21 09:04 VOMITING DIARRHEA CHILLS oseltamivir AdvReac Unknown NAUSEA Verified 11/07/21 09:04 VOMITING DIARRHEA CHILLS Home Medications Medication Instructions Recorded Confirmed Type aspirin 81 mg capsule 81 mg PO QAM 09/26/21 11/07/21 History atorvastatin 20 mg tablet 20 mg PO QAM 09/26/21 11/07/21 History cholecalciferol (vitamin D3) 25 25 mcg PO QAM 09/26/21 11/07/21 History mcg (1,000 unit) chewable tablet (Vitamin D3) echinacea 125 mg capsule 125 mg PO QAM 09/26/21 11/07/21 History glucosamine sulf dipot 2 cap PO QAM 09/26/21 11/07/21 History chlr,msm,chond 550 mg-C 30 mg-yara 1 mg capsule (Glucosamine Chondroitin) lisinopril 5 mg tablet 5 mg PO HS 09/26/21 11/07/21 History multivitamin 1 cap PO QAM 09/26/21 11/07/21 History pantoprazole 40 mg tablet,delayed 40 mg PO BID 09/26/21 11/07/21 History release Patient History Medical History (Updated 11/07/21 @ 16:17 by Uvaldo Howell MD) BPH (benign prostatic hyperplasia) GERD (gastroesophageal reflux disease) controlled, stable per pt HTN (hypertension) controlled, stable per pt Hyperlipidemia Pacemaker follow with Dr. Rodriguez in [place] PONV (postoperative nausea and vomiting) does well with IV pre-dosing, denies needing scop patch Ringing in ears Surgical History History of knee replacement procedure of left knee History of knee replacement procedure of right knee History of surgery on left wrist repair of tear History of surgical amputation of finger of right hand index finger Hx of colonoscopy Hx of foot surgery left foot with pin Hx of LASIK Hx of right inguinal hernia repair Social History Smoking Status: Never smoker Second Hand Exposure: No; Do You Dip or Chew Tobacco: No; Tobacco Cessation Education Requested by Patient: No Hx Alcohol Use: Yes Alcohol type: beer Hx Substance Use: No Preferred Language: Kenyan Communication Ability: Effective Spiral Winding Machine Helper Required: No Beliefs That Will Affect Care: None Current Living Situation: Spouse Other Information That Helps Us Care for You: No Feels Safe at Home: Yes Safety Concerns: Feels Safe At This Time Assistive Devices: None Review of Systems Review of Systems: All systems reviewed & are unremarkable except as noted in Subjective Physical Exam Physical Exam: General: A&Ox3. NAD. Cooperative. HEENT: Atraumatic, normocephalic. Pupils equal and reactive to light. Visual acuity grossly intact, hearing grossly intact. Pacer palpable on right upper chest. Pulm: CTAB A&P. -wheezes, -rales, -rhonchi. Symmetrical chest rise. No increase in work of breathing. No respiratory distress. Cardiac: RRR, -mrg. Radial pulses intact and symmetrical. Abdominal: Nontender, nondistended, soft. BS present. Extremities: Right knee in postop dressing. Brisk cap refill in toes bilaterally, sensation to soft touch reduced in right foot/ankle but increasing. Sensation of soft touch in left foot intact to soft touch. Lamp Stack Developer strength normal, moving upper extremities equally Results & Data Results & Data ([facility]) Vital Signs (Past 12 Hours) Vital Signs Temp Pulse Pulse Resp BP Pulse Ox O2 Del Method 11/07/21 15:15 36.3 C L 73 16 143/74 H 95 Nasal Cannula 11/07/21 15:00 36.3 C L 70 14 116/73 98 Nasal Cannula 11/07/21 14:45 78 12 151/74 H 97 Nasal Cannula 11/07/21 14:30 69 12 142/70 H 98 Nasal Cannula 11/07/21 14:15 65 12 145/70 H 98 Nasal Cannula 11/07/21 14:00 67 14 158/74 H 97 Nasal Cannula 11/07/21 13:50 67 12 145/80 H 93 Room Air 11/07/21 13:40 65 12 140/78 96 Room Air 11/07/21 13:30 36.3 C L 77 20 149/82 H 98 Room Air 11/07/21 13:20 77 20 138/68 97 Room Air 11/07/21 13:10 77 12 133/74 92 Room Air 11/07/21 13:00 66 17 116/54 L 97 Oxymask 11/07/21 12:50 36.4 C L 69 16 106/50 L 97 Oxymask 11/07/21 09:07 36.8 C 67 20 161/76 H 98 Room Air O2 Flow Rate 11/07/21 15:15 2 11/07/21 15:00 2 11/07/21 14:45 2 11/07/21 14:30 2 11/07/21 14:15 2 11/07/21 14:00 2 11/07/21 13:50 11/07/21 13:40 11/07/21 13:30 11/07/21 13:20 11/07/21 13:10 11/07/21 13:00 6 11/07/21 12:50 6 11/07/21 09:07 PG Care Time/CCT Total # of Minutes Spent Total Time Spent with Patient: Total time spent is greater than 50% in coordination of care (as documented) at patient's floor/unit and/or counseling patient: Coding Level of Care Code 63503 Inpt Consult Level 3 Diagnoses Hyperlipidemia E78.5 BPH (benign prostatic hyperplasia) N40.0 GERD (gastroesophageal reflux disease) K21.9 HTN (hypertension) I10
[2021-11-07] MEDS: ACETAMINOPHEN 500 MG TAB PO SCH ×2 (16:35→21:33)
[2021-11-07] MEDS: ceFAZolin 2000MG 2,000 MG/15 ML SYR IV SCH (19:54)
[2021-11-07] MEDS ORDERED: lisinopril 5 MG TAB PO SCH (21:00)
[2021-11-07] MEDS ORDERED: SENNA 8.6 MG TAB PO SCH (21:00)
[2021-11-07] MEDS: ASPIRIN 81 MG ECTAB PO SCH (21:34)
[2021-11-07] MEDS: PANTOprazole 40 MG TAB PO SCH (21:34)
[2021-11-07] MEDS: DOCUSATE SODIUM 100 MG CAP PO SCH (21:35)
[2021-11-08] MEDS ORDERED: diphenhydrAMINE Capsule 25 MG CAP PO ONE (00:25)
[2021-11-08] MEDS: SODIUM CHLORIDE 0.9% 1000ML 1,000 ML IV SCH (02:18)
[2021-11-08] MEDS: ceFAZolin 2000MG 2,000 MG/15 ML SYR IV SCH (06:23)
[2021-11-08] MEDS: ACETAMINOPHEN 500 MG TAB PO SCH (06:23)
--- NOTE | 2021-11-08 07:45 | Hospitalist Progress Note ---
Date of Service November 08, 2021 Assessment & Plan (1) Hyperlipidemia: Plan: Kishore is a 66-year-old male who presented for right total knee replacement 11/07/2021, we are consulted for postop management. Right total knee replacement/polyexchange 11/07/2021 Pain adequately controlled at bedside. DVT prophylaxis, pain control, activity restrictions per primary team Neurovascularly intact at time of bedside Patient does not have any more Nausea. Hypertension May resume lisinopril 11/08/2021 Normotensive at time of bedside assessment Aspirin 81 mg daily adjusted to twice daily for DVT PPx per primary team Recommend BMP in the morning, if creatinine remains at baseline resume lisinopril as noted Sick sinus syndrome s/p pacer placement No symptoms since pacer placed Rate adequate No acute interventions needed for this at this time HLD Continue atorvastatin 20 mg nightly GERD Continue PPI 40 mg twice daily hx BPH Bladder scan every shift/PRN, straight cath as needed if PVR greater than 300 cc Patient is medically cleared from a hospitalist stand point. Signing off at this time. (2) BPH (benign prostatic hyperplasia): (3) GERD (gastroesophageal reflux disease): (4) HTN (hypertension): Admission and Anticipated Discharge Date Admission Date: November 07, 2021 Supervising Physician Co-Signing Physician Notes I personally examined the patient and verified all viera points of history and exam, discussed case, and agree with decision making with Dr Wood. Feeling okay, pain controlled. Feels up to going home. Vitals noted, in general he is awake and alert pleasant no distress. HEENT normocephalic atraumatic mucous membranes moist. Breathing unlabored no accessory muscle use good effort. Skin shows no rashes no pallor or icterus. Neuro without focal deficits. Status post TKAper Ortho Hypertensionstable given situation. Safe/stable for home on home meds. Subjective Patient was seen beside this morning. He has no complaints. He is tolerating food and no longer has any nausea. Review of Systems Review of Systems: All systems reviewed & are unremarkable except as noted in HPI & below Physical Exam Physical Exam: Constitutional: WD/WN, vitals as above no acute distress ENMT: Mouth: no dentition abnormality Mallampati Class: III Neck: normal visual inspection Respiratory: normal respiratory effort, lungs clear to auscultation normal respiratory effort; no respiratory distress, no labored breathing and does not use accessory muscles Auscultation: lungs clear to auscultation bilaterally Cardiovascular: RRR, no murmur, no edema Rate/Rhythm: regular rate and regular rhythm Heart Sounds: no murmur Gastrointestinal (Abdomen): normal bowel sounds, soft, nontender, no hepatosplenomegaly Musculoskeletal: Spine: normal cervical ROM Psychiatric: Orientation: alert and oriented x 3 Results & Data Results & Data ([facility]) Vital Signs (Past 12 Hours) Vital Signs Temp Pulse Resp BP Pulse Ox O2 Del Method 11/08/21 03:38 36.8 C 67 18 167/72 H 96 Room Air 11/07/21 22:35 36.6 C 72 16 152/68 H 97 Room Air 11/07/21 20:10 75 20 143/72 H 98 Room Air Resident Activity Tracking Resident Involvement: Resident Care Provided Care Provided: Adult Hospital Medicine
[2021-11-08] MEDS: DOCUSATE SODIUM 100 MG CAP PO SCH (08:12)
[2021-11-08] MEDS: ASPIRIN 81 MG ECTAB PO SCH (08:12)
[2021-11-08] MEDS: PANTOprazole 40 MG TAB PO SCH (08:12)
[2021-11-08 08:29] LABS: Hematocrit (blood only) 39.4 % (40.1-51.0); Mean Corpuscular Hemoglobin 29.3 pg (25.0-34.0); Mean Corpuscular Volume 88.7 fL (80.0-100.0); Mean Platelet Volume 10.4 fL (9.4-12.4); Platelet Count 135 K/uL (130-400); RDW Coefficient of Variation 12.9 % (11.5-14.5); RDW Standard Deviation 41.9 fL (36.4-46.3); Red Blood Count 4.44 M/uL (4.63-6.08); White Blood Count 11.97 K/ul (4.8-10.8)
[2021-11-08] MEDS ORDERED: MULTIVITAMIN TAB PO SCH (09:00)
[2021-11-08] MEDS ORDERED: CHOLECALCIFEROL 1,000 UNITS 25 MCG TAB PO SCH (09:00)
[2021-11-08] MEDS ORDERED: ATORVASTATIN 20 MG TAB PO SCH (09:00)
[2021-11-08 09:16] LABS: BUN Creatinine Ratio 21.3 (10-20); Calcium 8.5 mg/dl (8.5-10.1); Creatinine Clr Calc Pharmacy 83.7 ml/min; Est GFR (African American) 96.8 ml/min; Est GFR (Non-African American) 83.6 ml/min; Potassium 4.4 mmol/L (3.5-5.1)
--- NOTE | 2021-11-08 10:23 | Orthopedic Progress Note ---
Date of Service November 08, 2021 Assessment & Plan (1) Right knee pain: Plan: POD 1 s/p Right TKA poly change for instability. PT/OT protocols. Progressing well. DVT prophylaxis - ASA po bid, SCD's, SARIKA's Pain management as written DC planning - Outpt PT upon DC Admission and Anticipated Discharge Date Admission Date: November 07, 2021 Subjective POD 1 Pt sitting up in chair at bedside. Has completed his therapies today. Progressing well. No complaints. Pain controlled. Physical Exam Physical Exam: Dressings are C/D/I. Calves, soft, NT. NV intact. Toes mobile/Good DF/PF. HV drainage 100ml from previous shift. Results & Data ([facility]) Vital Signs (Past 12 Hours) Vital Signs Temp Pulse Pulse Resp BP Pulse Ox O2 Del Method 11/08/21 07:52 36.7 C 74 16 145/71 H 97 Room Air 11/08/21 03:38 36.8 C 67 18 167/72 H 96 Room Air 11/07/21 22:35 36.6 C 72 16 152/68 H 97 Room Air Laboratory Results Laboratory Results WBC 11.97 K/ul (4.8-10.8) H 11/08/21 07:52 RBC 4.44 M/uL (4.63-6.08) L 11/08/21 07:52 Hgb 13.0 g/dl (14.0-18.0) L 11/08/21 07:52 Hct 39.4 % (40.1-51.0) L 11/08/21 07:52 MCV 88.7 fL (80.0-100.0) 11/08/21 07:52 MCH 29.3 pg (25.0-34.0) 11/08/21 07:52 MCHC 33.0 g/dL (32.0-36.0) 11/08/21 07:52 RDW Std Deviation 41.9 fL (36.4-46.3) 11/08/21 07:52 RDW Coeff of Jack 12.9 % (11.5-14.5) 11/08/21 07:52 Plt Count 135 K/uL (130-400) 11/08/21 07:52 MPV 10.4 fL (9.4-12.4) 11/08/21 07:52 Sodium 136 mmol/L (136-145) 11/08/21 07:52 Potassium 4.4 mmol/L (3.5-5.1) 11/08/21 07:52 Chloride 108 mmol/L (98-107) H 11/08/21 07:52 Carbon Dioxide 24 mmol/L (21-32) 11/08/21 07:52 Anion Gap 4 (3-11) 11/08/21 07:52 BUN 20 mg/dl (6-23) 11/08/21 07:52 Creatinine 0.94 mg/dl (0.6-1.4) 11/08/21 07:52 Est Cr Clr Drug Dosing 83.7 ml/min 11/08/21 07:52 Est GFR ( Amer) 96.8 ml/min 11/08/21 07:52 Est GFR (Non-Af Amer) 83.6 ml/min 11/08/21 07:52 BUN/Creatinine Ratio 21.3 (10-20) H 11/08/21 07:52 Glucose 140 mg/dl (70-99(Fasting)) H 11/08/21 07:52 Calcium 8.5 mg/dl (8.5-10.1) 11/08/21 07:52 SARS-CoV-2, RNA, NAAT NEGATIVE (NEGATIVE) 11/07/21 08:47 Blood Type A Positive 11/07/21 08:56 Antibody Screen NEGATIVE 11/07/21 08:56 Impressions Knee X-Ray 11/07/21 13:03 XR knee RT 1 or 2V routine HISTORY: 66 years-old Male Surgical Post Op right knee total joint arthroplasty COMPARISON: None TECHNIQUE: 2 views the right knee FINDINGS: Right knee total joint arthroplasty with patellar resurfacing. Anterior midline skin isabella are noted along with expected postoperative soft tissue swelling and deep tissue air. Surgical drainage catheter is in place. IMPRESSION: Total joint arthroplasty with expected postoperative changes. ACT 112: Negative or not required by law. The above report was generated using voice recognition software. It may contain grammatical, syntax or spelling errors. Electronically signed by: Socrates Benjamin M.D. 11/07/2021 1:51 PM
--- NOTE | 2021-11-08 17:12 | Billing Data ---
Date of Service November 08, 2021 Coding Level of Care Code 47705 Subseq Obs Care Lvl 2
[2021-11-08] MEDS ORDERED: lisinopril 5 MG TAB PO SCH (21:00)
--- NOTE | 2021-11-09 12:12 | Discharge Summary ---
Date of Service November 09, 2021 Admission HPI Per Admitting Provider Win is a 66 year old male w/ complaints of right knee pain, s/p right TKA 03/[address] Wagoner, Ocampo and Nephew 8 femur, 7 tibia, 10 poly and 30 patella. he did require a THIAGO in May 2010. he then did well until most recently, has complaints of ongoing painful effusion with ligamentous laxity to right total knee status post total knee arthroplasty, with marked medial lateral collateral ligament laxity with subluxation and jumping of post. He has had a Synovasure done no infection is noted sed rate is within normal limits at 2 C-reactive protein is 1.8 within normal limits no crystals are noted no pseudogout is noted, alpha defense and this is negative no sign of anything infectious. x-rays revealed no tibial or femoral component loosening his problems. he discussed with Dr Wagoner that this is likely wear with poly loosening and had the discussion regarding poly exchange upsizing to correct the instability. Admission Exam Per Admitting Provider Physical Exam: HT: 6 ft WT: 91.7kg Constitutional: WD/WN, vitals as above no acute distress Respiratory: normal respiratory effort, lungs clear to auscultation no respiratory distress, no labored breathing and does not use accessory muscles Cardiovascular: RRR, no murmur, no edema Gastrointestinal (Abdomen): normal bowel sounds, soft, nontender, no hepatosplenomegaly Musculoskeletal: Right Knee Exam Ambulates with a limp, overall neutral alignment, there is no atrophy warmth or ecchymosis noted, mild effusion, maximum tenderness medial joint line. negative patellar Apprehension , no crepitation with motion, mild laxity with valgus and varus stress, no Extensor lag, no Pain with Active range of motion, Range of motion 0/3/110. No pain with active/passive ROM of ankle. Lower Extremity Strength normal. Lower Extremity Neuro-vascular is normal Principal Diagnosis Right TKA instability/pain Discharge Exam Patient:WIN MCGARRY Admit Date:11/07/21 MR#:[id number] Att Phy:Kirill Wagoner,D.O. Acct ID:[id number] Dorys Phy:Elaine Campos MD Date:1955 Fam Phy: Age:66 Location:3N Sex:M Room/Bed:N379-2 cc: ~ *NOTICE TO RECEIVING CONSTITUTION PARTY/AGENCY This information is strictly Confidential and protected under [place] law. [place] law prohibits you from making any further disclosure of this information unless further disclosure is expressly permitted by the written consent of the person to whom it pertains or is authorized by law. A general authorization for the release of medical or other information is not sufficient for this purpose. Hospital accepts no responsibility if the information is made available to any other person, INCLUDING THE PATIENT. Date of Service November 08, 2021 Assessment & Plan (1) Right knee pain: Plan: POD 1 s/p Right TKA poly change for instability. PT/OT protocols. Progressing well. DVT prophylaxis - ASA po bid, SCD's, SARIKA's Pain management as written DC planning - Outpt PT upon DC Admission and Anticipated Discharge Date Admission Date: November 07, 2021 Subjective POD 1 Pt sitting up in chair at bedside. Has completed his therapies today. Progressing well. No complaints. Pain controlled. Physical Exam Physical Exam: Dressings are C/D/I. Calves, soft, NT. NV intact. Toes mobile/Good DF/PF. HV drainage 100ml from previous shift. Results & Data ([facility]) Vital Signs (Past 12 Hours) Vital Signs Temp Pulse Pulse Resp BP Pulse Ox O2 Del Method 11/08/21 07:52 36.7 C 74 16 145/71 H 97 Room Air 11/08/21 03:38 36.8 C 67 18 167/72 H 96 Room Air 11/07/21 22:35 36.6 C 72 16 152/68 H 97 Room Air Laboratory Results Laboratory Results WBC 11.97 K/ul (4.8-10.8) H 11/08/21 07:52 RBC 4.44 M/uL (4.63-6.08) L 11/08/21 07:52 Hgb 13.0 g/dl (14.0-18.0) L 11/08/21 07:52 Hct 39.4 % (40.1-51.0) L 11/08/21 07:52 MCV 88.7 fL (80.0-100.0) 11/08/21 07:52 MCH 29.3 pg (25.0-34.0) 11/08/21 07:52 MCHC 33.0 g/dL (32.0-36.0) 11/08/21 07:52 RDW Std Deviation 41.9 fL (36.4-46.3) 11/08/21 07:52 RDW Coeff of Jack 12.9 % (11.5-14.5) 11/08/21 07:52 Plt Count 135 K/uL (130-400) 11/08/21 07:52 MPV 10.4 fL (9.4-12.4) 11/08/21 07:52 Sodium 136 mmol/L (136-145) 11/08/21 07:52 Potassium 4.4 mmol/L (3.5-5.1) 11/08/21 07:52 Chloride 108 mmol/L (98-107) H 11/08/21 07:52 Carbon Dioxide 24 mmol/L (21-32) 11/08/21 07:52 Anion Gap 4 (3-11) 11/08/21 07:52 BUN 20 mg/dl (6-23) 11/08/21 07:52 Creatinine 0.94 mg/dl (0.6-1.4) 11/08/21 07:52 Est Cr Clr Drug Dosing 83.7 ml/min 11/08/21 07:52 Est GFR ( Amer) 96.8 ml/min 11/08/21 07:52 Est GFR (Non-Af Amer) 83.6 ml/min 11/08/21 07:52 BUN/Creatinine Ratio 21.3 (10-20) H 11/08/21 07:52 Glucose 140 mg/dl (70-99(Fasting)) H 11/08/21 07:52 Calcium 8.5 mg/dl (8.5-10.1) 11/08/21 07:52 SARS-CoV-2, RNA, NAAT NEGATIVE (NEGATIVE) 11/07/21 08:47 Blood Type A Positive 11/07/21 08:56 Antibody Screen NEGATIVE 11/07/21 08:56 Impressions Knee X-Ray 11/07/21 13:03 XR knee RT 1 or 2V routine HISTORY: 66 years-old Male Surgical Post Op right knee total joint arthroplasty COMPARISON: None TECHNIQUE: 2 views the right knee FINDINGS: Right knee total joint arthroplasty with patellar resurfacing. Anterior midline skin isabella are noted along with expected postoperative soft tissue swelling and deep tissue air. Surgical drainage catheter is in place. IMPRESSION: Total joint arthroplasty with expected postoperative changes. ACT 112: Negative or not required by law. The above report was generated using voice recognition software. It may contain grammatical, syntax or spelling errors. Electronically signed by: Socrates Benjamin M.D. 11/07/2021 1:51 PM Discharge Data Allergies Allergy/AdvReac Type Severity Reaction Status Date / Time blue dye AdvReac Unknown NAUSEA Verified 11/07/21 09:04 VOMITING DIARRHEA CHILLS oseltamivir AdvReac Unknown NAUSEA Verified 11/07/21 09:04 VOMITING DIARRHEA CHILLS Consultations 10/19/21 18:06 Consult Hospitalist Routine Procedures Performed Operation Date: 10/24/21 11:40 <No data on this case meets the specified criteria> Operation Date: 11/07/21 10:30 Actual Procedures p Right Total Knee Polyethylene Exchange with Synovectomy(Right) - Kirill Wagoner DO Ordered Studies 10/24/21 05:00 US - OR guided needle placemen Routine 11/07/21 05:00 US - OR guided needle placemen Routine Hospital Course (1) Right knee pain: POD 1 s/p Right TKA poly change for instability. PT/OT protocols. Progressing well. DVT prophylaxis - ASA po bid, SCD's, SARIKA's Pain management as written DC planning - Outpt PT upon DC Discharge Plan Discharge Items Patient Disposition: Home - Self-Care Reason For Visit: Failed Total Right Knee Arthroplasty Discharge Diagnosis: Failed Right TKA/instability Activity: Per Instructions section Weightbearing: Right weightbearing Weightbearing Comment: as tolerated with walker Non-emergency contact: Surgeon Call non-emergency contact if: you have any medication questions, your pain is not controlled, your temperature is above 101.5, your wound has increased redness and your wound has increased drainage Follow-up/Referrals: Kirill Wagoner DO [Surgeon] - (Follow up with Dr. Wagoner in 2 weeks from the day of your surgery for your first post operative visit) Elaine Campos MD [Primary Care Provider] - Diet: Regular Addtl Attending Provider Instructions: ACTIVITY RECOMMENDATIONS: SELF CARE INSTRUCTIONS AFTER TOTAL KNEE REPLACEMENT A. You may need to continue a physical therapy program after discharge from the hospital. There are several options available to you. Your doctor will assist you in selecting the best one for you. 1. An out-patient facility 2 to 3 times a week for therapy or home therapy. 2. Continue working on all exercises taught to you in the hospital. Your goals should be to increase bending of your knee to 90 degrees and beyond and to fully straighten your knee. B. You may progress at your own pace from walking with a walker or crutches to a cane; then to no assistive devices. C. Make walking a part of your daily routine. Be up as much as comfortable with rest periods throughout the day. Rest with leg elevation is very important. Use the ice wrap frequently for the first 3-4 weeks. D. There are no restrictions on activities. You may ride in a car, shop, participate in laboratory engineer and all social activities. E. Wear the long elastic stockings (SARIKA hose) 20 hours a day for 2 weeks after surgery. They can be removed several times a day for laundering and for a bath. F. You may shower, no tub baths until cleared by your doctor. SPECIAL CARE INSTRUCTIONS: VERY IMPORTANT TO READ AND REVIEW A. There are a few signs you need to watch for after you are home. Call [facility] if you notice any of the followin. Increased severe knee pain. Some pain is expected especially when you exercise. 2. Increased swelling in your leg or knee; pain or swelling of the calf muscle in either lower leg. 3. Any fluid drainage from the incision. 4. Shortness of breath or chest pain. B. Please call [facility] at if you have any concerns or questions about your operation or recovery. The doctor or his nurse will return your call promptly. C. You must take antibiotics before dental work, bladder, bowel or other surgery. Your doctor will provide you with a permanent care to carry describing this precaution. IMPORTANT: * REMEMBER TO TAKE ASPIRIN, 81 MG, TWICE DAILY FOR 4 WEEKS UNLESS OTHERWISE DIRECTED. THIS IS YOUR BLOOD THINNER. * HIGH RISK PATIENTS MAY BE PRESCRIBED A STRONGER BLOOD THINNER. THIS WILL BE PROVIDED AT DISCHARGE. * CALL IF INCREASED PAIN, REDNESS, DRAINAGE OR FEVER GREATER THAT 101. * WEAR SARIKA HOSE 20 HOURS PER DAY FOR 2 WEEKS. * NANCY Dressing- This is a large suction dressing covering your incision. This will help pull any excess drainage from the wound and allow your incision to heal properly. You may shower with this if you can keep the unit outside of the shower. If any bleeding or leakage is noted please call your doctor's office. This will remain on your incision for 7 days and then should be removed. This can be done yourself or by the home nursing staff if applicable. The entire unit is disposable once removed. Once removed, keep incision clean and dry. If redness or drainage is noted, please call your surgeon. . FOLLOW UP VISIT: If appointment is not already scheduled: Please call [facility] to make a follow-up appointment for 2 weeks after your surgery at . Stand-Alone Forms: My [employer], Smoking Cessation Medications and DC Order Prescriptions: New aspirin 81 mg Tablet,Delayed Release (Dr/Ec) 81 mg PO BID 30 Days Qty: 60 0RF acetaminophen [Tylenol Extra Strength] 500 mg Tablet 1,000 mg PO Q8 14 Days Qty: 84 0RF polyethylene glycol 3350 [Miralax] 17 gram powder in packet 17 g PO DAILY PRN (Reason: constipation) Qty: 5 0RF cefadroxil 500 mg capsule 500 mg PO BID Qty: 14 0RF oxycodone 5 mg tablet 5 mg PO Q4H MDD 6 PRN (Reason: pain) Qty: 30 0RF Continued atorvastatin 20 mg Tablet 20 mg PO QAM pantoprazole 40 mg Tablet,Delayed Release (Dr/Ec) 40 mg PO BID lisinopril 5 mg Tablet 5 mg PO HS multivitamin Capsule 1 cap PO QAM echinacea 125 mg Capsule 125 mg PO QAM cholecalciferol (vitamin D3) [Vitamin D3] 25 mcg (1,000 unit) Tablet,Chewable 25 mcg PO QAM Glucosamine Chondroitin 550-30-1 mg Capsule 2 cap PO QAM Discontinued aspirin 81 mg Capsule 81 mg PO QAM Discharge Orders: Discharge Order (Routine); Ordered 11/08/21 Ordered By: Chino Carbajal Admission Data Admit Date/Time: 11/07/21 13:03 Attending Provider: Kirill Wagoner Admit Provider: Kirill Wagoner Primary Care Provider: Elaine Campos Other Providers: Robert Quinn ; Matti Rodriguez Other Interventions: Discharge Summary Assessment (RN) Last Done: 11/08/21 10:41
--- NOTE | 2021-11-09 12:16 | Discharge Summary ---
Date of Service November 09, 2021 Admission HPI Per Admitting Provider Win is a 66 year old male w/ complaints of right knee pain, s/p right TKA 03/[address] Wagoner, Ocampo and Nephew 8 femur, 7 tibia, 10 poly and 30 patella. he did require a THIAGO in May 2010. he then did well until most recently, has complaints of ongoing painful effusion with ligamentous laxity to right total knee status post total knee arthroplasty, with marked medial lateral collateral ligament laxity with subluxation and jumping of post. He has had a Synovasure done no infection is noted sed rate is within normal limits at 2 C-reactive protein is 1.8 within normal limits no crystals are noted no pseudogout is noted, alpha defense and this is negative no sign of anything infectious. x-rays revealed no tibial or femoral component loosening his problems. he discussed with Dr Wagoner that this is likely wear with poly loosening and had the discussion regarding poly exchange upsizing to correct the instability. Admission Exam Per Admitting Provider Physical Exam: HT: 6 ft WT: 91.7kg Constitutional: WD/WN, vitals as above no acute distress Respiratory: normal respiratory effort, lungs clear to auscultation no respiratory distress, no labored breathing and does not use accessory muscles Cardiovascular: RRR, no murmur, no edema Gastrointestinal (Abdomen): normal bowel sounds, soft, nontender, no hepatosplenomegaly Musculoskeletal: Right Knee Exam Ambulates with a limp, overall neutral alignment, there is no atrophy warmth or ecchymosis noted, mild effusion, maximum tenderness medial joint line. negative patellar Apprehension , no crepitation with motion, mild laxity with valgus and varus stress, no Extensor lag, no Pain with Active range of motion, Range of motion 0/3/110. No pain with active/passive ROM of ankle. Lower Extremity Strength normal. Lower Extremity Neuro-vascular is normal Principal Diagnosis Right TKA instability/pain Discharge Data Allergies Allergy/AdvReac Type Severity Reaction Status Date / Time blue dye AdvReac Unknown NAUSEA Verified 11/07/21 09:04 VOMITING DIARRHEA CHILLS oseltamivir AdvReac Unknown NAUSEA Verified 11/07/21 09:04 VOMITING DIARRHEA CHILLS Consultations 10/19/21 18:06 Consult Hospitalist Routine Procedures Performed Operation Date: 10/24/21 11:40 <No data on this case meets the specified criteria> Operation Date: 11/07/21 10:30 Actual Procedures p Right Total Knee Polyethylene Exchange with Synovectomy(Right) - Kirill Wagoner DO Ordered Studies 10/24/21 05:00 US - OR guided needle placemen Routine 11/07/21 05:00 US - OR guided needle placemen Routine Hospital Course (1) Right knee pain: Patient:WIN MCGARRY Admit Date:11/07/21 MR#:[id number] Att Phy:Kirill Wagoner,D.O. Acct ID:[id number] Dorys Phy:Elaine Campos MD Date:1955 Fam Phy: Age:66 Location:3N Sex:M Room/Bed:[facility] cc: ~ *NOTICE TO RECEIVING DEMOCRAT/AGENCY This information is strictly Confidential and protected under [place] law. [place] law prohibits you from making any further disclosure of this information unless further disclosure is expressly permitted by the written consent of the person to whom it pertains or is authorized by law. A general authorization for the release of medical or other information is not sufficient for this purpose. Hospital accepts no responsibility if the information is made available to any other person, INCLUDING THE PATIENT. Date of Service November 08, 2021 Assessment & Plan (1) Right knee pain: Plan: POD 1 s/p Right TKA poly change for instability. PT/OT protocols. Progressing well. DVT prophylaxis - ASA po bid, SCD's, SARIKA's Pain management as written DC planning - Outpt PT upon DC Admission and Anticipated Discharge Date Admission Date: November 07, 2021 Subjective POD 1 Pt sitting up in chair at bedside. Has completed his therapies today. Progressing well. No complaints. Pain controlled. Physical Exam Physical Exam: Dressings are C/D/I. Calves, soft, NT. NV intact. Toes mobile/Good DF/PF. HV drainage 100ml from previous shift. Results & Data ([facility]) Vital Signs (Past 12 Hours) Vital Signs Temp Pulse Pulse Resp BP Pulse Ox O2 Del Method 11/08/21 07:52 36.7 C 74 16 145/71 H 97 Room Air 11/08/21 03:38 36.8 C 67 18 167/72 H 96 Room Air 11/07/21 22:35 36.6 C 72 16 152/68 H 97 Room Air Laboratory Results Laboratory Results WBC 11.97 K/ul (4.8-10.8) H 11/08/21 07:52 RBC 4.44 M/uL (4.63-6.08) L 11/08/21 07:52 Hgb 13.0 g/dl (14.0-18.0) L 11/08/21 07:52 Hct 39.4 % (40.1-51.0) L 11/08/21 07:52 MCV 88.7 fL (80.0-100.0) 11/08/21 07:52 MCH 29.3 pg (25.0-34.0) 11/08/21 07:52 MCHC 33.0 g/dL (32.0-36.0) 11/08/21 07:52 RDW Std Deviation 41.9 fL (36.4-46.3) 11/08/21 07:52 RDW Coeff of Jack 12.9 % (11.5-14.5) 11/08/21 07:52 Plt CountE 135 K/uL (130-400) 11/08/21 07:52 MPV 10.4 fL (9.4-12.4) 11/08/21 07:52 Sodium 136 mmol/L (136-145) 11/08/21 07:52 Potassium 4.4 mmol/L (3.5-5.1) 11/08/21 07:52 Chloride 108 mmol/L (98-107) H 11/08/21 07:52 Carbon Dioxide 24 mmol/L (21-32) 11/08/21 07:52 Anion Gap 4 (3-11) 11/08/21 07:52 BUN 20 mg/dl (6-23) 11/08/21 07:52 Creatinine 0.94 mg/dl (0.6-1.4) 11/08/21 07:52 Est Cr Clr Drug Dosing 83.7 ml/min 11/08/21 07:52 Est GFR ( Amer) 96.8 ml/min 11/08/21 07:52 Est GFR (Non-Af Amer) 83.6 ml/min 11/08/21 07:52 BUN/Creatinine Ratio 21.3 (10-20) H 11/08/21 07:52 Glucose 140 mg/dl (70-99(Fasting)) H 11/08/21 07:52 Calcium 8.5 mg/dl (8.5-10.1) 11/08/21 07:52 SARS-CoV-2, RNA, NAAT NEGATIVE (NEGATIVE) 11/07/21 08:47 Blood Type A Positive 11/07/21 08:56 Antibody Screen NEGATIVE 11/07/21 08:56 Impressions Knee X-Ray 11/07/21 13:03 XR knee RT 1 or 2V routine HISTORY: 66 years-old Male Surgical Post Op right knee total joint arthroplasty COMPARISON: None TECHNIQUE: 2 views the right knee FINDINGS: Right knee total joint arthroplasty with patellar resurfacing. Anterior midline skin isabella are noted along with expected postoperative soft tissue swelling and deep tissue air. Surgical drainage catheter is in place. IMPRESSION: Total joint arthroplasty with expected postoperative changes. ACT 112: Negative or not required by law. The above report was generated using voice recognition software. It may contain grammatical, syntax or spelling errors. Electronically signed by: Socrates Benjamin M.D. 11/07/2021 1:51 PM Total Time Total Time Spent Total Time Spent (In Minutes): 10 Discharge Plan Discharge Items Patient Disposition: Home - Self-Care Reason For Visit: Failed Total Right Knee Arthroplasty Discharge Diagnosis: Failed Right TKA/instability Activity: Per Instructions section Weightbearing: Right weightbearing Weightbearing Comment: as tolerated with walker Non-emergency contact: Surgeon Call non-emergency contact if: you have any medication questions, your pain is not controlled, your temperature is above 101.5, your wound has increased redness and your wound has increased drainage Follow-up/Referrals: Kirill Wagoner DO [Surgeon] - (Follow up with Dr. Wagoner in 2 weeks from the day of your surgery for your first post operative visit) Elaine Campos MD [Primary Care Provider] - Diet: Regular Addtl Attending Provider Instructions: ACTIVITY RECOMMENDATIONS: SELF CARE INSTRUCTIONS AFTER TOTAL KNEE REPLACEMENT A. You may need to continue a physical therapy program after discharge from the hospital. There are several options available to you. Your doctor will assist you in selecting the best one for you. 1. An out-patient facility 2 to 3 times a week for therapy or home therapy. 2. Continue working on all exercises taught to you in the hospital. Your goals should be to increase bending of your knee to 90 degrees and beyond and to fully straighten your knee. B. You may progress at your own pace from walking with a walker or crutches to a cane; then to no assistive devices. C. Make walking a part of your daily routine. Be up as much as comfortable with rest periods throughout the day. Rest with leg elevation is very important. Use the ice wrap frequently for the first 3-4 weeks. D. There are no restrictions on activities. You may ride in a car, shop, participate in railcar switchman and all social activities. E. Wear the long elastic stockings (SARIKA hose) 20 hours a day for 2 weeks after surgery. They can be removed several times a day for laundering and for a bath. F. You may shower, no tub baths until cleared by your doctor. SPECIAL CARE INSTRUCTIONS: VERY IMPORTANT TO READ AND REVIEW A. There are a few signs you need to watch for after you are home. Call [facility] if you notice any of the followin. Increased severe knee pain. Some pain is expected especially when you exercise. 2. Increased swelling in your leg or knee; pain or swelling of the calf muscle in either lower leg. 3. Any fluid drainage from the incision. 4. Shortness of breath or chest pain. B. Please call [facility] at if you have any concerns or questions about your operation or recovery. The doctor or his nurse will return your call promptly. C. You must take antibiotics before dental work, bladder, bowel or other surgery. Your doctor will provide you with a permanent care to carry describing this precaution. IMPORTANT: * REMEMBER TO TAKE ASPIRIN, 81 MG, TWICE DAILY FOR 4 WEEKS UNLESS OTHERWISE DIRECTED. THIS IS YOUR BLOOD THINNER. * HIGH RISK PATIENTS MAY BE PRESCRIBED A STRONGER BLOOD THINNER. THIS WILL BE PROVIDED AT DISCHARGE. * CALL IF INCREASED PAIN, REDNESS, DRAINAGE OR FEVER GREATER THAT 101. * WEAR SARIKA HOSE 20 HOURS PER DAY FOR 2 WEEKS. * NANCY Dressing- This is a large suction dressing covering your incision. This will help pull any excess drainage from the wound and allow your incision to heal properly. You may shower with this if you can keep the unit outside of the shower. If any bleeding or leakage is noted please call your doctor's office. This will remain on your incision for 7 days and then should be removed. This can be done yourself or by the home nursing staff if applicable. The entire unit is disposable once removed. Once removed, keep incision clean and dry. If redness or drainage is noted, please call your surgeon. . FOLLOW UP VISIT: If appointment is not already scheduled: Please call [facility] to make a follow-up appointment for 2 weeks after your surgery at . Stand-Alone Forms: My [facility], Smoking Cessation Medications and DC Order Prescriptions: New aspirin 81 mg Tablet,Delayed Release (Dr/Ec) 81 mg PO BID 30 Days Qty: 60 0RF acetaminophen [Tylenol Extra Strength] 500 mg Tablet 1,000 mg PO Q8 14 Days Qty: 84 0RF polyethylene glycol 3350 [Miralax] 17 gram powder in packet 17 g PO DAILY PRN (Reason: constipation) Qty: 5 0RF cefadroxil 500 mg capsule 500 mg PO BID Qty: 14 0RF oxycodone 5 mg tablet 5 mg PO Q4H MDD 6 PRN (Reason: pain) Qty: 30 0RF Continued atorvastatin 20 mg Tablet 20 mg PO QAM pantoprazole 40 mg Tablet,Delayed Release (Dr/Ec) 40 mg PO BID lisinopril 5 mg Tablet 5 mg PO HS multivitamin Capsule 1 cap PO QAM echinacea 125 mg Capsule 125 mg PO QAM cholecalciferol (vitamin D3) [Vitamin D3] 25 mcg (1,000 unit) Tablet,Chewable 25 mcg PO QAM Glucosamine Chondroitin 550-30-1 mg Capsule 2 cap PO QAM Discontinued aspirin 81 mg Capsule 81 mg PO QAM Discharge Orders: Discharge Order (Routine); Ordered 11/08/21 Ordered By: Chino Carbajal Admission Data Admit Date/Time: 11/07/21 13:03 Attending Provider: Kirill Wagoner Admit Provider: Kirill Wagoner Primary Care Provider: Elaine Campos Other Providers: Robert Quinn ; Matti Rodriguez Other Interventions: Discharge Summary Assessment (RN) Last Done: 11/08/21 10:41
== END 2021-11-08 12:56 | disposition home or self-care (01) | DRG 489 ==
LOC: ASU 08:33 → 3N 08:33 → OBSVTOIN 13:03